=== PATIENT | male | born 1955 | race Caucasian/White ===

== ENCOUNTER 2017-11-29 09:08 | Observation (INO) ==
[2017-11-29] MEDS ORDERED: 0.9 % Sodium Chloride 1,000 ML IVC ONE (09:21)
--- NOTE | 2017-11-29 09:33 | Emergency Department Note ---
Disposition Clinical Impression: Syncope and collapse Disposition: Admitted As Inpatient Condition: Good Referrals: NONE,PCP [Primary Care Provider] - Forms: ED Satisfaction Letter General Adult HPI - General Chief complaint: ED Syncope Stated complaint: syncope Time Seen by Provider: 11/29/17 09:14 Source: EMS Limitations: no limitations Nursing Notes Reviewed: Yes Vital Signs Reviewed: Yes - History of Present Illness Pain Scale: 0 - Related Data Allergies Allergy/AdvReac Type Severity Reaction Status Date / Time No Known Allergies Allergy Verified 11/29/17 09:26 Past Medical History - Past Medical History Medical history: Reports: diabetes, GERD, hypertension Surgical history: Reports: other Psychiatric history: Reports: no psych history - Social History Smoking Status: Never smoker Smokeless Tobacco Status: No Alcohol use: Reports: none Drug use: Reports: none Physical Exam - General Limitations: no limitations General appearance: alert, in no apparent distress Course Vital Signs Temperature 97.6 F 11/29/17 09:11 Pulse Rate 70 11/29/17 09:11 Respiratory Rate 14 11/29/17 09:11 Blood Pressure 116/66 11/29/17 09:11 O2 Sat by Pulse Oximetry 97 11/29/17 09:11 Temperature 97.6 F 11/29/17 09:11 Pulse Rate 72 11/29/17 10:33 Respiratory Rate 14 11/29/17 09:11 Blood Pressure 120/66 11/29/17 10:33 O2 Sat by Pulse Oximetry 97 11/29/17 09:11 Oxygen Delivery Oxygen Delivery Room Air Medical Decision Making - MDM Narrative Medical decision making narrative: Chest X-Ray 11/29/17 09:21 IMPRESSION: No acute findings in the chest. D/ / Chevy Felix MD / Chevy Felix MD Interpreting Provider: Chevy Felix MD 1030 hrs.: Chest x-rays negative. Nurse did orthostatics. Lying down was 120/ 66 with a heart rate of 72, sitting up was 112/72 with heart rate of 76, standing was 89/59 with heart rate of 85 which is positive however he was asymptomatic. He is accepted for admission. - Lab Data Result diagrams: 11/29/17 09:40 09/19/18 09:40 Lab Results 11/29/17 11/29/17 Range/Units 09:40 09:40 WBC 10.7 (4.3-11.1) K/mcL RBC 4.81 (4.19-5.50) M/mcL Hgb 14.7 (12.9-16.9) g/dL Hct 41.9 (37.5-50.1) % MCV 87.1 (83.0-100.0) fL MCH 30.6 (28.0-33.3) pg MCHC 35.1 (31.6-35.5) g/dL RDW 12.0 (11.5-14.5) % Plt Count 209 (140-400) K/mcL MPV 12.0 (9.4-12.4) fL Immature Gran % 0.3 (0-4) % Seg Neutrophils % 65.2 % Lymphocytes % 21.7 % Monocytes % 8.4 % Eosinophils % 3.8 % Basophils % 0.6 % Neutrophils # 7.0 (1.6-8.9) K/mcL Lymphocytes # 2.3 (0.6-4.6) K/mcL Monocytes # 0.9 (0.0-1.3) K/mcL Eosinophils # 0.4 (0.0-0.6) K/mcL Basophils # 0.1 (0.0-0.2) K/mcL Sodium 134 L (136-145) mEq/L Potassium 4.1 (3.5-5.1) mEq/L Chloride 100 (98-107) mEq/L Carbon Dioxide 25 (23-29) mEq/L BUN 17 (8-23) mg/dL Creatinine 1.08 (0.70-1.30) mg/dL Est GFR ( Amer) > 60 (> 60) Est GFR (Non-Af Amer) > 60 (> 60) BUN/Creatinine Ratio 16 (6-26) Glucose 376 H (70-105) mg/dL Calculated Osmolality 295 (280-300) Calcium 8.9 (8.6-10.3) mg/dL Total Bilirubin 0.5 (0.3-1.0) mg/dL AST 10 L (13-39) Units/L ALT 8 (7-52) Units/L Alkaline Phosphatase 45 (34-104) Units/L Troponin I < 0.03 (< 0.04) ng/mL Serum Total Protein 6.5 (6.4-8.9) g/dL Albumin 3.5 (3.5-5.7) g/dL Globulin 3.0 (2.4-3.5) g/dL Albumin/Globulin Ratio 1.2 (1.1-2.2) Attestation Statement - Attestation Attestation: This documentation is done with the assistance of Dragon dictation. Despite efforts made to ensure accuracy, there may be inaccuracies in hand glass cutter or spelling and typographical errors. I examined this patient and my medical decision-making was reviewed with the Resident Physician. I agree with the documented findings, disposition and treatment plan as described except to the extent set forth below. Patient seen and evaluated on arrival with EMS and : Denny, I agree with his evaluation and management plan, supervise care the patient's stay. 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 He said he got was normal time felt okay. A little little lightheaded. And then woke up on the floor. It was a witnessed syncopal episode. He denies any injury. He states now he feels fine. Medics did note he had hypotension with a systolic blood pressure in the 90s. He also had some ST segment depression on their initial EKG however the second EKG did not demonstrate this. Patient states he did take his blood pressure medication this morning and his blood sugar medication. His blood sugar was not low per medics. He said the same thing happened him back on but he did not get evaluated at that time. We will order a workup now and reassess. Most likely he will need admission. He has no neuro deficits on gross exam per
[2017-11-29 09:48] LABS: Basophils # 0.1 K/mcL (0.0-0.2); Basophils % 0.6 %; Eosinophils # 0.4 K/mcL (0.0-0.6); Eosinophils % 3.8 %; Hematocrit 41.9 % (37.5-50.1); Hemoglobin 14.7 g/dL (12.9-16.9); Immature Granulocytes % 0.3 % (0-4); Lymphocytes # 2.3 K/mcL (0.6-4.6); Lymphocytes % 21.7 %; Mean Corpuscular HGB Conc 35.1 g/dL (31.6-35.5); Mean Corpuscular Hemoglobin 30.6 pg (28.0-33.3); Mean Corpuscular Volume 87.1 fL (83.0-100.0); Monocytes # 0.9 K/mcL (0.0-1.3); Monocytes % 8.4 %; Platelet Count 209 K/mcL (140-400); Red Blood Count 4.81 M/mcL (4.19-5.50); Segmented Neutrophils % 65.2 %
--- NOTE | 2017-11-29 09:49 | Emergency Department Note ---
Disposition Clinical Impression: Syncope and collapse Disposition: Admitted As Inpatient Condition: Good Referrals: NONE,PCP [Primary Care Provider] - Forms: ED Satisfaction Letter Time of Disposition: 10:33 General Adult HPI - General Chief complaint: ED Syncope Stated complaint: syncope Time Seen by Provider: 11/29/17 09:14 Source: patient, EMS Mode of arrival: EMS Limitations: no limitations Nursing Notes Reviewed: Yes Vital Signs Reviewed: Yes - History of Present Illness HPI Narrative: Patient is a 62-year-old male that presents emergency department after syncopal episode. 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 Patient states that he did fall to ground but did not injure himself. Patient denies hitting his head. States that he was only out for a short period of time. Patient states that he has had these episodes in the past most recent one was on weekend. Patient states that he has not had a workup for his syncope. Patient denies any numbness, weakness, tingling or any other symptoms at this time. Pain Scale: 0 - Related Data Allergies Allergy/AdvReac Type Severity Reaction Status Date / Time No Known Allergies Allergy Verified 11/29/17 09:26 All systems ED: reviewed and negative except as stated. Cardiovascular: Denies: chest pain Respiratory: Denies: dyspnea Gastrointestinal: Denies: abdominal pain Neurological: Denies: weakness, numbness, paresthesias Past Medical History - Past Medical History Medical history: Reports: diabetes, GERD, hypertension Surgical history: Reports: other Psychiatric history: Reports: no psych history - Social History Smoking Status: Never smoker Smokeless Tobacco Status: No Alcohol use: Reports: none Drug use: Reports: none Physical Exam - General Limitations: no limitations General appearance: alert, in no apparent distress - Head Head exam: atraumatic, normocephalic - Eye Eye exam: Present: normal appearance, EOMI - Neck Neck exam: Present: normal inspection, full ROM, trachea midline - Respiratory Respiratory exam: Present: normal lung sounds bilaterally. Absent: respiratory distress, wheezes - Cardiovascular Cardiovascular exam: Present: regular rate, normal rhythm, normal heart sounds, +S1, +S2 - Abdominal Exam Abdominal exam: Present: soft, Non-Tender, normal bowel sounds - Neurological Exam Neurological exam: Present: alert, oriented X3, CN II-XII intact - Expanded Neurological Exam Cranial nerves: EOM function (II, III, IV, ): Normal, facial sensation (V): Normal, facial palsy (VII): Normal, gag reflex (IX): Normal, spinal accessory function (XI): Normal, tongue deviation (XII): Normal Cerebellar function: finger to nose: Normal, heel to prakash: Normal Motor strength - LUE: 5/5 Motor strength - RUE: 5/5 Motor strength - LLE: 5/5 Motor strength - RLE: 5/5 Upper motor neuron exam: pronator drift: Absent bilaterally Sensory exam upper extremity: light touch: Normal Sensory exam lower extremity: light touch: Normal Coma Scale Eye Opening: Spontaneous Coma Scale Motor Response: Obeys Commands Coma Scale Verbal Response: Oriented Coma Scale Total: 15 - Psychiatric Psychiatric exam: Present: normal affect, normal mood - Skin Skin exam: Present: warm, dry, intact Course Vital Signs Temperature 97.6 F 11/29/17 09:11 Pulse Rate 70 11/29/17 09:11 Respiratory Rate 14 11/29/17 09:11 Blood Pressure 116/66 11/29/17 09:11 O2 Sat by Pulse Oximetry 97 11/29/17 09:11 Temperature 97.6 F 11/29/17 09:11 Pulse Rate 70 11/29/17 09:11 Respiratory Rate 14 11/29/17 09:11 Blood Pressure 116/66 11/29/17 09:11 O2 Sat by Pulse Oximetry 97 11/29/17 09:11 Oxygen Delivery Oxygen Delivery Room Air Medical Decision Making - MDM Narrative Medical decision making narrative: Due to the patient presenting to the emergency department with a syncopal episode we will obtain basic laboratory tests including CBC, BMP, troponin chest x-ray and EKG. Patient will likely need to be admitted to the hospital due to unexplained syncopal episodes that of been reoccurring. Patient's EKG does not show any ischemic changes Rest x-ray does not show any acute cardial pulmonary process. The patient does have an elevated blood glucose level. The remainder of his laboratory testing is relatively unremarkable. The patient will need to be admitted to the hospital for further evaluation and management of these syncopal episodes. I called and spoke with the admitting hospitalist Dr. Henry and he is accepted the patient to their service. Patient will be admitted to the hospital at this time for further evaluation and management. - Medical Records Medical records reviewed: Yes I reviewed the patient's medical records. - Lab Data Lab results reviewed: Yes I reviewed the patient's lab results. Result diagrams: 11/29/17 09:40 11/29/17 09:40 Lab Results 11/29/17 11/29/17 Range/Units 09:40 09:40 WBC 10.7 (4.3-11.1) K/mcL RBC 4.81 (4.19-5.50) M/mcL Hgb 14.7 (12.9-16.9) g/dL Hct 41.9 (37.5-50.1) % MCV 87.1 (83.0-100.0) fL MCH 30.6 (28.0-33.3) pg MCHC 35.1 (31.6-35.5) g/dL RDW 12.0 (11.5-14.5) % Plt Count 209 (140-400) K/mcL MPV 12.0 (9.4-12.4) fL Immature Gran % 0.3 (0-4) % Seg Neutrophils % 65.2 % Lymphocytes % 21.7 % Monocytes % 8.4 % Eosinophils % 3.8 % Basophils % 0.6 % Neutrophils # 7.0 (1.6-8.9) K/mcL Lymphocytes # 2.3 (0.6-4.6) K/mcL Monocytes # 0.9 (0.0-1.3) K/mcL Eosinophils # 0.4 (0.0-0.6) K/mcL Basophils # 0.1 (0.0-0.2) K/mcL Sodium 134 L (136-145) mEq/L Potassium 4.1 (3.5-5.1) mEq/L Chloride 100 (98-107) mEq/L Carbon Dioxide 25 (23-29) mEq/L BUN 17 (8-23) mg/dL Creatinine 1.08 (0.70-1.30) mg/dL Est GFR ( Amer) > 60 (> 60) Est GFR (Non-Af Amer) > 60 (> 60) BUN/Creatinine Ratio 16 (6-26) Glucose 376 H (70-105) mg/dL Calculated Osmolality 295 (280-300) Calcium 8.9 (8.6-10.3) mg/dL Total Bilirubin 0.5 (0.3-1.0) mg/dL AST 10 L (13-39) Units/L ALT 8 (7-52) Units/L Alkaline Phosphatase 45 (34-104) Units/L Troponin I < 0.03 (< 0.04) ng/mL Serum Total Protein 6.5 (6.4-8.9) g/dL Albumin 3.5 (3.5-5.7) g/dL Globulin 3.0 (2.4-3.5) g/dL Albumin/Globulin Ratio 1.2 (1.1-2.2) - Radiology Data Radiology results reviewed: Yes I reviewed the patient's radiology results. Chest X-Ray 11/29/17 09:21 IMPRESSION: No acute findings in the chest. D/ / Chevy Felix MD / Chevy Felix MD Interpreting Provider: Chevy Felix MD - EKG Data EKG #1 EKG attestation: Yes I reviewed and interpreted this EKG. EKG results narrative: EKG shows sinus rhythm at a rate of 72 bpm, GA interval of 221, QRS duration of 108, QTc of 438. There are some T-wave inversions in lead 1 and aVL. This is compared to previous EKG on 07/27/13 which also showed these inversions. No evidence of STEMI on EKG.
--- NOTE | 2017-11-29 09:53 | Emergency Department Note ---
Disposition Clinical Impression: Syncope and collapse Disposition: Admitted As Inpatient Condition: Good General Adult HPI - General Chief complaint: ED Syncope Stated complaint: syncope Time Seen by Provider: 11/29/17 09:14 Source: EMS Limitations: no limitations Nursing Notes Reviewed: Yes Vital Signs Reviewed: Yes - History of Present Illness HPI Narrative: 62 year old male with diabetes on Metformin and HTN BIBA for evaluation of a witnessed syncopal episode. Patient works in a [employer] and states that he was standing behind the robertson chair when he started to feel clammy and lightheaded and passed out. Patient states that he awoke on the floor and thinks that he fell on his hip but denies pain at this time. Pt states he does not believe he hit his head. Pt denies loss of bowel or bladder control. Patient has a history of syncopal episodes with the most recent one occurring while walking in a flea market on November 11 earlier this year. He has not been evaluated by a health care provider for these occurrences. Pt denies chest pain, shortness of breath, LAURA, abdominal pain, N/V, numbness or weakness at this time. Pain Scale: 0 - Related Data Allergies Allergy/AdvReac Type Severity Reaction Status Date / Time No Known Allergies Allergy Verified 11/29/17 09:26 Constitutional: Denies: fever, chills Eyes: Denies: vision change Cardiovascular: Reports: syncope. Denies: chest pain, palpitations Respiratory: Denies: cough, dyspnea Gastrointestinal: Denies: abdominal pain, nausea, vomiting Genitourinary: Denies: urgency, dysuria Musculoskeletal: Denies: neck pain Integumentary: Denies: abrasion Neurological: Denies: headache, numbness Psychiatric: Reports: as per HPI Endocrine: Denies: fatigue Allergic/Immunologic: Reports: as per HPI Past Medical History - Past Medical History Medical history: Reports: diabetes, GERD, hypertension Surgical history: Reports: other Psychiatric history: Reports: no psych history - Social History Smoking Status: Never smoker Smokeless Tobacco Status: No Alcohol use: Reports: none Drug use: Reports: none Physical Exam - General Limitations: no limitations General appearance: alert, in no apparent distress - Head Head exam: normocephalic, normal inspection - Eye Eye exam: Present: normal appearance, PERRL - ENT ENT exam: normal exam, normal oropharynx - Neck Neck exam: Present: full ROM. Absent: tenderness - Chest Chest inspection: Present: symmetric chest wall rise - Respiratory Respiratory exam: Present: normal lung sounds bilaterally - Cardiovascular Cardiovascular exam: Present: regular rate, normal rhythm. Absent: JVD - Abdominal Exam Abdominal exam: Present: soft, Non-Tender, normal bowel sounds. Absent: guarding, rigidity - Extremities Exam Extremities exam: Present: normal inspection, full ROM. Absent: tenderness - Back Exam Back exam: Present: normal inspection - Neurological Exam Neurological exam: Present: alert, oriented X3, CN II-XII intact - Psychiatric Psychiatric exam: Present: normal affect, normal mood - Skin Skin exam: Present: warm, normal color Course Vital Signs Temperature 97.6 F 11/29/17 09:11 Pulse Rate 70 11/29/17 09:11 Respiratory Rate 14 11/29/17 09:11 Blood Pressure 116/66 11/29/17 09:11 O2 Sat by Pulse Oximetry 97 11/29/17 09:11 Temperature 97.6 F 11/29/17 09:11 Pulse Rate 72 11/29/17 10:33 Respiratory Rate 14 11/29/17 09:11 Blood Pressure 120/66 11/29/17 10:33 O2 Sat by Pulse Oximetry 97 11/29/17 09:11 Oxygen Delivery Oxygen Delivery Room Air Medical Decision Making - Lab Data Result diagrams: 11/29/17 09:40 11/29/17 09:40 Lab Results 11/29/17 11/29/17 Range/Units 09:40 09:40 WBC 10.7 (4.3-11.1) K/mcL RBC 4.81 (4.19-5.50) M/mcL Hgb 14.7 (12.9-16.9) g/dL Hct 41.9 (37.5-50.1) % MCV 87.1 (83.0-100.0) fL MCH 30.6 (28.0-33.3) pg MCHC 35.1 (31.6-35.5) g/dL RDW 12.0 (11.5-14.5) % Plt Count 209 (140-400) K/mcL MPV 12.0 (9.4-12.4) fL Immature Gran % 0.3 (0-4) % Seg Neutrophils % 65.2 % Lymphocytes % 21.7 % Monocytes % 8.4 % Eosinophils % 3.8 % Basophils % 0.6 % Neutrophils # 7.0 (1.6-8.9) K/mcL Lymphocytes # 2.3 (0.6-4.6) K/mcL Monocytes # 0.9 (0.0-1.3) K/mcL Eosinophils # 0.4 (0.0-0.6) K/mcL Basophils # 0.1 (0.0-0.2) K/mcL Sodium 134 L (136-145) mEq/L Potassium 4.1 (3.5-5.1) mEq/L Chloride 100 (98-107) mEq/L Carbon Dioxide 25 (23-29) mEq/L BUN 17 (8-23) mg/dL Creatinine 1.08 (0.70-1.30) mg/dL Est GFR ( Amer) > 60 (> 60) Est GFR (Non-Af Amer) > 60 (> 60) BUN/Creatinine Ratio 16 (6-26) Glucose 376 H (70-105) mg/dL Calculated Osmolality 295 (280-300) Calcium 8.9 (8.6-10.3) mg/dL Total Bilirubin 0.5 (0.3-1.0) mg/dL AST 10 L (13-39) Units/L ALT 8 (7-52) Units/L Alkaline Phosphatase 45 (34-104) Units/L Troponin I < 0.03 (< 0.04) ng/mL Serum Total Protein 6.5 (6.4-8.9) g/dL Albumin 3.5 (3.5-5.7) g/dL Globulin 3.0 (2.4-3.5) g/dL Albumin/Globulin Ratio 1.2 (1.1-2.2)
[2017-11-29 10:08] LABS: Alanine Aminotransferase 8 Units/L (7-52); Albumin 3.5 g/dL (3.5-5.7); Albumin/Globulin Ratio 1.2 (1.1-2.2); Alkaline Phosphatase 45 Units/L (34-104); Aspartate Amino Transferase 10 Units/L (13-39); BUN/Creatinine Ratio 16 (6-26); Bilirubin,Total 0.5 mg/dL (0.3-1.0); Blood Urea Nitrogen 17 mg/dL (8-23); Calcium 8.9 mg/dL (8.6-10.3); Carbon Dioxide 25 mEq/L (23-29); Chloride 100 mEq/L (98-107); Glucose 376 mg/dL (70-105); Osmolality,Calculated 295 (280-300); Potassium 4.1 mEq/L (3.5-5.1); Sodium 134 mEq/L (136-145); Total Protein 6.5 g/dL (6.4-8.9); Troponin I < 0.03 ng/mL (< 0.04); eGFR For Non-African Americans > 60 (> 60)
[2017-11-29] MEDS ORDERED: Naloxone 0.4 MG/ML INJ IVP PRN (12:24)
--- NOTE | 2017-11-29 12:50 | Internal Med History&Physical ---
Date of Encounter: 11/29/17 Time of Encounter: 12:47 Internal Medicine - H&P: HPI Chief complaint: I fell History of present illness: Mr. Paredes is a 62 year old male with past medical history of hypertension diabetes for about past year came in with complain of fall. Patient had a fitness S syncopal episode. 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 He fell on his hip. No reports of convulsive episodes. Denies any history of any seizure episodes. Denies any loss of bowel or bladder control. Patient on interview said he had similar episodes about 9 months ago during Labor Day. However to ER jorge albertoter he also mentioned he had similar episode on November 11. Denies any chest pain any shortness of breath, tingling numbness or weakness in any part of her body. Denies any vision changes, hearing changes or speech changes. Denies any headaches. Denies any nausea or vomiting. He had cinnamon roll in breakfast before he went for work. Denies any cardiac history. Unclear to him why he is taking aspirin and Coreg. Does not remember having any echocardiogram in the past and denies any history of any heart problems in past. Patient received a liter of NS in ER. Patient was noted to have elevated blood sugar levels in 300. He is blood sugar Ann in the morning has been in 200s or the past few days. He does mention having increased urinary frequency over the past year. He has been eating and drinking okay according to him over the past few days. Past Med Surg Social Fam HX - Past Medical History Medical history: diabetes, GERD, hypertension Psychiatric history: no psych history - Past Surgical History Surgical History: no surgical history, other - Social History Smoking Status: Never smoker Smokeless Tobacco Status: No Alcohol use: none Drug use: none Occupational status: employed Current living situation: Home - Independent Activity Level: Independent ambulation - Family History Sister Hx Family Cancer: Yes (Unknown cancer) Internal Medicine - H&P: Meds Amlodipine Besylate 10 mg PO DAILY 11/29/17 [History] Aspirin [Lo-Dose Aspirin EC] 81 mg PO DAILY 11/29/17 [History] Carvedilol [Coreg] 25 mg PO BID 11/29/17 [History] Lisinopril [Zestril] 20 mg PO DAILY 11/29/17 [History] Lovastatin [Mevacor] 60 mg PO HS 11/29/17 [History] Metformin HCl 1,000 mg PO BID 11/29/17 [History] hydroCHLOROthiazide [Hydrochlorothiazide] 25 mg PO DAILY 11/29/17 [History] 3 Allergy/AdvReac Type Severity Reaction Status Date / Time No Known Allergies Allergy Verified 11/29/17 09:26 All Systems PM: A 10-system review of systems was performed and is negative for pertinent findings except as documented above in the HPI. - Constitutional Vitals: Temp Pulse Resp BP Pulse Ox 97.6 F 72 14 120/66 97 11/29/17 09:11 11/29/17 10:33 11/29/17 09:11 11/29/17 10:33 11/29/17 09:11 General appearance: Present: A&O X 3, no acute distress Exam: Const: Vital signs listed above.Orthostatic vitals: 146/77-94 lying down, 111/76 -80 standing after 3 mins. Well developed, well nourished and in no acute distress. No mood disorders noted, calm affect. Eyes: Sclera white, conjunctiva clear, lids are without lag. PERRLA. Pupils and irises are equal and round without defect. ENT: Grossly normal hearing. Oropharanx clear and moist without erythema. Gums pink, good dentition. Lymph/Neck: No masses, thyromegaly, or abnormal cervical notes. No bruit. Tracheal midline. Cardio: RRR, Normal S1, S2, ejection systolic murmur best heard at LLSB, no rubs or gallops. Skin warm and dry. No peripheral edema. Respiratory: Chest symmetrical, respirations non-labored. No dullness or flatness. Clear bilaterally to auscultation, non-tender to palpitation. Musculo: No deformity or scoliosis noted. No bhupendra gait disturbance noted. No cyanosis or edema. Pulses normal in all 4 extremities. No atrophy or abnormal movements. Appropriate muscle strength bilaterally. Neurologic: No focal deficits, cranial nerves II-XII grossly intact with normal sensation, reflexes, coordination, muscle strength and tone. GI/Abdomen: Soft, non tender, non distended, no hepatosplemomegaly, normal bowel sounds, no masses noted. Pych: AOx3 Internal Med - H&P Results - Labs CBC & Chem 7: 11/29/17 09:40 11/29/17 09:40 - Assessment and plan (1) Syncope and collapse Current Visit: Yes Status: Acute Assessment and plan: Syncopal episode with some prodrome of feeling clammy and some sweating - Differential include orthostatic hypotension, cardiac arrhythmia, structural heart problems. Unlikely to be seizure episode by history. - Likely orthostatic given elevated blood sugars might have led to dehydration with the orthostatic vitals being positive for drop in systolic and diastolic blood pressure - However given abnormal EKG and presence of systolic murmur we will obtain echocardiogram. - We will get cardiology consultation given abnormal EKG with ST depression and T-wave inversion in the 1 and aVL(although was seen in previous EKGs). Patient currently symptom-free. - Keep patient on telemetry. - Received 1 L of NS in ER. We will continue gentle hydration with 75 mL of normal saline given his elevated her blood sugar (2) Abnormal EKG Current Visit: Yes Status: Acute Assessment and plan: EKG with the T-wave inversions and ST depression in lead [address] elevation in V2 and V1 without any chest pain or shortness of breath - Similar changes observed in previous EKGs. - Cardiology consulted. (3) HTN (hypertension) Current Visit: Yes Status: Acute Assessment and plan: Blood pressure currently well controlled. - We will continue home Coreg and lisinopril. - We will hold home hydrochlorothiazide given mild hyponatremia and syncope. - We will consider another antihypertensive if needed given his symptoms could be from dehydration and possibility of recurrence. Qualifiers: Qualified Code(s): I10 - Essential (primary) hypertension (4) Diabetes mellitus Current Visit: Yes Status: Acute Assessment and plan: Elevated blood sugars in 300s - Patient takes metformin at home. - Hold metformin for now. - Keep patient on sliding scale insulin, pre-meal insulin of 5 and Levemir of 10 at bedtime. We will do 1 dose of 5 units of Levemir now. Accu-Cheks before meals at bedtime. - We will keep patient on gentle hydration with normal saline at 75 mL/hr Qualifiers: Qualified Code(s): E11.9 - Type 2 diabetes mellitus without complications - Time Spent With Patient Total time spent is greater than 50% in coordination of care (as documented) at patient's floor/unit and/or counseling patient:
[2017-11-29] MEDS ORDERED: Insulin DETEMIR 100 UNIT/ML X5UNITS SQ ONE (13:22)
--- NOTE | 2017-11-29 13:29 | Electrocardiograph Report ---
[facility] Test Date: 2017-11-29 Pat Name: Frederick Paredes Department: EXAM6 Room: 2S3 Gender: M Human Resources Leader: : 1955 Requested By: Ammon Mcmahan Order Number: [id number] Reading MD: Luis Glass Measurements Intervals [place] Rate: 72 P: -20 MO: 221 QRS: -41 QRSD: 108 T: 114 QT: 418 QTc: 458 Interpretive Statements Sinus rhythm Abnormal R-wave progression, late transition LVH with secondary repolarization abnormality Electronically Signed On 11-29-2017 13:28:09 EDT by Luis Glass
[2017-11-29] MEDS: 0.9 % Sodium Chloride 1,000 ML IVC SCH (13:59)
[2017-11-29] MEDS: Insulin LISPRO 300 UNITS/3 ML VIAL SQ SCH (16:21)
[2017-11-29] MEDS ORDERED: Insulin DETEMIR 100 UNIT/ML X5UNITS SQ SCH (21:00)
[2017-11-29] MEDS ORDERED: Perflutren Lipid Microsphere 1.3 ML in 0.9 % Sodium Chloride 8.7 ML IVP ONE (21:22)
[2017-11-30] MEDS: *HR* Enoxaparin 40 MG/0.4 ML SYRINGE SQ SCH (06:26)
[2017-11-30] MEDS ORDERED: Lisinopril 20 MG TABLET PO SCH (09:00)
[2017-11-30] MEDS ORDERED: amLODIPine 5 MG TABLET PO SCH (09:00)
--- NOTE | 2017-11-30 10:05 | Internal Med Progress Note ---
Hospitalist Progress Note - Encounter Date of Encounter: 11/30/17 Time of Encounter: 10:00 - Subjective Interval History: NO acute changes overnight. Denies any return of syncopal like events. Reports that he feels fine and is wanting to discharge. - Exam Vitals: Temp Pulse Resp BP Pulse Ox 97.8 F 69 16 147/83 95 11/30/17 08:27 11/30/17 08:27 11/30/17 08:27 11/30/17 08:27 11/30/17 08:27 Exam: Const: Vital signs listed above.Orthostatic vitals: 146/77-94 lying down, 111/76 -80 standing after 3 mins. Well developed, well nourished and in no acute distress. No mood disorders noted, calm affect. Eyes: Sclera white, conjunctiva clear, lids are without lag. PERRLA. Pupils and irises are equal and round without defect. ENT: Grossly normal hearing. Oropharanx clear and moist without erythema. Gums pink, good dentition. Lymph/Neck: No masses, thyromegaly, or abnormal cervical notes. No carotid bruits. Tracheal midline. Cardio: RRR, Normal S1, S2, grade 1 ejection systolic murmur best heard at LLSB , no rubs or gallops. Skin warm and dry. No peripheral edema. Respiratory: Chest symmetrical, respirations non-labored. No dullness or flatness. Clear bilaterally to auscultation, non-tender to palpitation. Musculo: No deformity or scoliosis noted. No bhupendra gait disturbance noted. No cyanosis or edema. Pulses normal in all 4 extremities. No atrophy or abnormal movements. Appropriate muscle strength bilaterally. Neurologic: No focal deficits, cranial nerves II-XII grossly intact with normal sensation, reflexes, coordination, muscle strength and tone. GI/Abdomen: Soft, non tender, non distended, no hepatosplemomegaly, normal bowel sounds, no masses noted. Pych: AOx3 - Assessment and Plan (1) Syncope and collapse Current Visit: Yes Status: Acute Assessment and Plan: Syncopal episode with some prodrome of feeling clammy and some sweating - Differential include orthostatic hypotension, cardiac arrhythmia, structural heart problems. Unlikely to be seizure episode by history. - Likely orthostatic given elevated blood sugars might have led to dehydration with the orthostatic vitals being positive for drop in systolic and diastolic blood pressure - However given abnormal EKG and presence of systolic murmur we will obtain echocardiogram. - We will get cardiology consultation given abnormal EKG with ST depression and T-wave inversion in the 1 and aVL(although was seen in previous EKGs). Patient currently symptom-free. - Keep patient on telemetry. - Received 1 L of NS in ER. We will continue gentle hydration with 75 mL of normal saline given his elevated her blood sugar 11/30- Positive orthostasis; Diagnosis orthostatic hypotension. Consider medications as cause. Patient reporting 5-6 syncopal events during the last year while at home. He denies ever having an evaluation for these events but reports that they began to occur shortly after starting lisinopril and CCB. Could also be caused by dehydration. Continue IVF, decrease JACQUI I dose and CCB dosing and monitor hemodynamic status. Continue with BID orthostasis. TTE- LVEF 70%. Normal LV chamber size and systolic function. Moderate cLVH. Normal right ventricular structure and function. No significant valvular dysfunction. Mild LVOT flow acceleration with minimal gradient. Unable to estimate RVSP due to lack of TR jet. Cardiology following in consultation and in agreement with d/c of HCTZ, decreasing JACQUI I and CCB, continue to closely monitor. May need further titration of anti-HTN meds to avoid HTN (2) HTN (hypertension) Current Visit: Yes Status: Acute Assessment and Plan: Blood pressure currently well controlled. episodes of orthostatic hypotension; will need to adjust BP meds - We will continue home Coreg at home dose and lisinopril at decreased dose, decrease CCB. - Continue holding hydrochlorothiazide given mild hyponatremia and syncope. (3) Diabetes mellitus Current Visit: Yes Status: Acute Assessment and Plan: Elevated blood sugars in 300s - Patient takes metformin at home. - Hold metformin for now. - Keep patient on sliding scale insulin, pre-meal insulin of 5 , increase levamir to 15 units at bedtime. We will do 1 dose of 5 units of Levemir now. Accu-Cheks before meals at bedtime. - We will keep patient on gentle hydration with normal saline at 75 mL/hr (4) Abnormal EKG Current Visit: Yes Status: Acute Assessment and Plan: EKG with the T-wave inversions and ST depression in lead [address] elevation in V2 and V1 without any chest pain or shortness of breath - Similar changes observed in previous EKGs 2015 - Initial troponin negative - Cardiology consulted - Echo pending - Time Spent with Patient Total time spent is greater than 50% in coordination of care (as documented) at patient's floor/unit and/or counseling patient: less than 15 minutes Plan of Care Discussed with: patient Internal Medicine: Result - Labs CBC & Chem 7: 11/29/17 09:40 11/29/17 09:40 - Impressions Impressions Echocardiogram 11/29/17 12:47 Impressions: LVEF 70%. Normal LV chamber size and systolic function. Moderate concentric left ventricular hypertrophy. Normal right ventricular structure and function. No significant valvular dysfunction. Mild LVOT flow acceleration with minimal gradient. Unable to estimate RVSP due to lack of TR jet. Left Ventricular Wall Motion: Rest Echo Findings All wall segments showed normal motion. Findings: Study Quality * Technically adequate exam. ECG Findings * Normal sinus rhythm. Left Ventricle * LVEF 70%. * Normal LV chamber size and systolic function. * Indeterminate diastolic function. * Moderate concentric left ventricular hypertrophy. Right Ventricle * Normal right ventricular structure and function. Left Atrium * Normal left atrial size. Right Atrium * Normal right atrial size. Interatrial Septum * Interatrial septum not well evaluated. Aortic Valve * Trileaflet aortic valve. * Mildly calcified aortic valve leaflets. * Mild LVOT flow acceleration, PG/MG 8/4mmHg * No aortic regurgitation. * No aortic stenosis. Mitral Valve * Normal mitral valve structure and function. * No mitral regurgitation. Tricuspid Valve * Normal tricuspid valve structure and function. * No tricuspid regurgitation. * Unable to estimate RVSP due to lack of TR jet. Pulmonic Valve * Normal pulmonic valve structure and function. * Trace pulmonic regurgitation. Aorta * Normally sized aortic root. Pericardium * The pericardium appears normal. IVC * The IVC is not well evaluated. Consult Discharge Plan - Plan Referrals: NONE,PCP [Primary Care Provider] -
--- NOTE | 2017-11-30 10:33 | Cardiology Consult Note ---
<Kole Ashby R - Last Filed: 11/30/17 12:22> Date of Encounter: 11/30/17 Time of Encounter: 10:27 Assessment and Plan (1) Syncope and collapse Current Visit: Yes Status: Acute Presented for syncopal event yesterday that occurred after going from a sitting to standing position. Associated symptom of diaphoresis. Reports total of 5 syncopal events in the past 2 years. Orthostatic vitals positive on admission and again this AM--lying 147/83, sitting 135/86, standing 109/80. Home antihypertensives included Lisinopril 20mg daily, Norvasc 10mg daily, HCTZ 25mg daily, Coreg 25mg BID. Primary team d/c'd HCTZ and decreased Lisinopril to 10mg daily and Norvasc to 5mg daily. Agree with changes. Suspect syncope is secondary to orthostatic hypotension. Pt admits to not staying well hydrated. Recommend staying hydrated, change positions slowly. TTE resulted--LVEF 70%. Normal LV chamber size and systolic function. Moderate cLVH. Normal right ventricular structure and function. No significant valvular dysfunction. Mild LVOT flow acceleration with minimal gradient. Unable to estimate RVSP due to lack of TR jet. Anticipate sign off once seen and evaluated by Dr. Palma. (2) Abnormal EKG Current Visit: Yes Status: Acute EKG is similar to previous in 2015. LVH with reciprocal changes. Initial troponin negative. Pt denies chest pain or dyspnea. No hx of CAD. TTE EF preserved. Discussion w patient/family: The assessment and plan as outlined above was discussed with the patient and/or family members who expressed understanding and agreement. All questions were answered. Thank you for involving us in the care of your patient. Please call with any questions. I will discuss all the above with Dr. Palma and make changes as necessary. History of Present Illness Consult date: 11/30/17 Requesting physician: Cassia Henry Consult reason: syncope Chief complaint: syncope History of present illness: Mr. Paredes is a 62 year old male with PMH of HTN, DM that presented to ED for syncopal event. 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 He denies dizziness/lightheadedness, chest pain or dyspnea. He fell on his hip. Denies any cardiac history. He does report a total of 5 syncopal events over the past couple of years. He admits to not staying well hydrated. Orthostatic vitals positive--lying 143/83, sitting 135/86, standing 109/80. Troponins negative. TTE resulted--LVEF 70%. Normal LV chamber size and systolic function. Moderate cLVH. Normal right ventricular structure and function. No significant valvular dysfunction. Mild LVOT flow acceleration with minimal gradient. Unable to estimate RVSP due to lack of TR jet. Past Med Surg Social Fam HX - Past Medical History Medical history: diabetes, GERD, hypertension Psychiatric history: no psych history - Past Surgical History Surgical History: no surgical history, other - Social History Smoking Status: Never smoker Smokeless Tobacco Status: No Alcohol use: none Drug use: none - Family History Sister Hx Family Cancer: Yes (Unknown cancer) Medications and Allergies Amlodipine Besylate 10 mg PO DAILY 11/29/17 [History] Aspirin [Lo-Dose Aspirin EC] 81 mg PO DAILY 11/29/17 [History] Carvedilol [Coreg] 25 mg PO BID 11/29/17 [History] Lisinopril [Zestril] 20 mg PO DAILY 11/29/17 [History] Lovastatin [Mevacor] 60 mg PO HS 11/29/17 [History] Metformin HCl 1,000 mg PO BID 11/29/17 [History] hydroCHLOROthiazide [Hydrochlorothiazide] 25 mg PO DAILY 11/29/17 [History] 3 Allergy/AdvReac Type Severity Reaction Status Date / Time No Known Allergies Allergy Verified 11/29/17 09:26 All Systems Review: The remainder of the systems were reviewed and are negative - Cardiovascular Cardiovascular: as per HPI, diaphoresis, syncope - Neurological Neurological: syncope Physical Examination Vital Signs, Last 4 Hours Temp Pulse Pulse Pulse Pulse Resp BP 11/30/17 08:27 97.8 F 75 69 77 93 16 147/83 BP BP BP Pulse Ox 18 08:27 147/83 135/86 109/80 95 Vital Signs Temp Pulse Pulse Pulse Pulse Resp BP 11/30/17 08:27 97.8 F 75 69 77 93 16 147/83 11/30/17 04:55 98.1 F 73 15 158/85 11/29/17 23:55 98.2 F 71 15 167/91 11/29/17 21:32 67 15 174/95 11/29/17 16:15 98.1 F 73 16 132/75 11/29/17 13:43 97.4 F L 71 18 113/79 11/29/17 13:00 81 16 120/76 BP BP BP Pulse Ox 11/30/17 08:27 147/83 135/86 109/80 95 11/30/17 04:55 95 11/29/17 23:55 95 11/29/17 21:32 96 11/29/17 16:15 95 11/29/17 13:43 97 11/29/17 13:00 96 Intake and Output 11/29/17 11/30/17 11/30/17 23:59 07:59 15:59 Intake Total 240 / 240 Output Total 150 / 150 Balance 90 / 90 Intake: Oral 240 / 240 Output: Urine 150 / 150 Other: Meal Dinner Percent of Meal Consumed 100% # Voids 1 1 1 Weight 88.2 kg Blood Glucose* 298 232 General: Conversant, No Apparent Distress HEENT: Atraumatic, Normocephaly, Mucus Membranes Moist Neck: No JVD, Normal carotid pulses Cardiac: Reg Rate and Rhythm, Normal S1 and S2, No Murmur Lungs: Normal Breath Sounds, No Wheeze, Rales, Rhonchi Neuro: Alert and responsive, No focal deficits noted Abdomen: Soft, Non-Tender Skin: No rashes noted on visualized skin Musculoskeletal: No Chest Wall Tenderness Extremities: No Clubbing, No Cyanosis, No Edema, Normal Pulses Results 11/29/17 09:40 11/29/17 09:40 Impressions Echocardiogram 11/29/17 12:47 Impressions: LVEF 70%. Normal LV chamber size and systolic function. Moderate concentric left ventricular hypertrophy. Normal right ventricular structure and function. No significant valvular dysfunction. Mild LVOT flow acceleration with minimal gradient. Unable to estimate RVSP due to lack of TR jet. Left Ventricular Wall Motion: Rest Echo Findings All wall segments showed normal motion. Findings: Study Quality * Technically adequate exam. ECG Findings * Normal sinus rhythm. Left Ventricle * LVEF 70%. * Normal LV chamber size and systolic function. * Indeterminate diastolic function. * Moderate concentric left ventricular hypertrophy. Right Ventricle * Normal right ventricular structure and function. Left Atrium * Normal left atrial size. Right Atrium * Normal right atrial size. Interatrial Septum * Interatrial septum not well evaluated. Aortic Valve * Trileaflet aortic valve. * Mildly calcified aortic valve leaflets. * Mild LVOT flow acceleration, PG/MG 8/4mmHg * No aortic regurgitation. * No aortic stenosis. Mitral Valve * Normal mitral valve structure and function. * No mitral regurgitation. Tricuspid Valve * Normal tricuspid valve structure and function. * No tricuspid regurgitation. * Unable to estimate RVSP due to lack of TR jet. Pulmonic Valve * Normal pulmonic valve structure and function. * Trace pulmonic regurgitation. Aorta * Normally sized aortic root. Pericardium * The pericardium appears normal. IVC * The IVC is not well evaluated. Active Medications Amlodipine Besylate (Norvasc) 5 mg PO DAILY [facility] Stop: 06/01/18 09:01 Aspirin (Aspirin Ec) 81 mg PO DAILY [facility] Stop: 06/01/18 09:01 Atorvastatin Calcium (Lipitor) 20 mg PO HS [facility] Stop: 05/31/18 21:01 Last Admin: 11/29/17 22:15 Dose: 20 mg Carvedilol (Coreg) 25 mg PO BIDWM [facility] PRN Reason: Protocol Stop: 05/31/18 17:01 Last Admin: 11/29/17 16:20 Dose: 25 mg Enoxaparin Sodium (Lovenox) 40 mg SQ 0600 [facility] PRN Reason: Protocol Stop: 06/01/18 06:01 Last Admin: 11/30/17 06:26 Dose: 40 mg Sodium Chloride (0.9 % Sodium Chloride) 1,000 mls @ 75 mls/hr IVC .[id number] [facility] Stop: 05/31/18 13:01 Last Admin: 11/29/17 13:59 Dose: 75 mls/hr Insulin Detemir (Levemir) 15 unit SQ HS [facility] Stop: 06/01/18 21:01 Insulin Human Lispro (Humalog) 5 units SQ TIDWM [facility] Stop: 05/31/18 17:01 Last Admin: 11/29/17 16:21 Dose: 5 units Lisinopril (Zestril) 10 mg PO DAILY [facility] PRN Reason: Protocol Stop: 06/01/18 09:01 Naloxone HCl (Narcan) 0.4 mg IVP Q2MIN PRN PRN Reason: SEE COMMENTS Stop: 05/31/18 12:25 - Imaging and Cardiology Echo: report reviewed - EKG Interpretation EKG results cardiology: personally reviewed (SR, LVH) Consult Discharge Plan - Plan Referrals: NONE,PCP [Primary Care Provider] - <Peter Palma A - Last Filed: 11/30/17 17:37> Date of Encounter: 11/30/17 - Attending Attestation I have personally performed a face to face evaluation on this patient. I have reviewed and agree with the care plan. History and Exam by me shows: 62 y/o M with features of orthostatic hypotension; echo shows hyperdynamic EF with mild YAN but no significant gradient. Avoid dehydration. Discontinue diuretics. Advise to stay hydrated Assessment and Plan Discussion w patient/family: The assessment and plan as outlined above was discussed with the patient and/or family members who expressed understanding and agreement. All questions were answered. Thank you for involving us in the care of your patient. Please call with any questions. History of Present Illness History of present illness: Mr. Paredes is a 62 year old male All Systems Review: The remainder of the systems were reviewed and are negative Physical Examination Vital Signs, Last 4 Hours Temp Pulse Resp BP Pulse Ox 11/30/17 16:16 98.1 F 69 14 152/81 96 Results 11/29/17 09:40 11/29/17 09:40
[2017-11-30] MEDS: Aspirin Enteric Coated 81 MG Tablet PO SCH (10:41)
[2017-11-30] MEDS: amLODIPine 5 MG TABLET PO SCH (10:41)
[2017-11-30] MEDS: Lisinopril 20 MG TABLET PO SCH (10:41)
[2017-11-30] MEDS: Insulin LISPRO 300 UNITS/3 ML VIAL SQ SCH ×3 (10:42→16:39)
[2017-11-30] MEDS: 0.9 % Sodium Chloride 1,000 ML IVC SCH ×2 (16:44→19:33)
[2017-11-30] MEDS ORDERED: Insulin DETEMIR 100 UNIT/ML X5UNITS SQ SCH (21:00)
[2017-12-01] MEDS: *HR* Enoxaparin 40 MG/0.4 ML SYRINGE SQ SCH (05:01)
[2017-12-01] MEDS: 0.9 % Sodium Chloride 1,000 ML IVC SCH (08:19)
[2017-12-01] MEDS: Aspirin Enteric Coated 81 MG Tablet PO SCH (08:20)
[2017-12-01] MEDS: Lisinopril 20 MG TABLET PO SCH (08:20)
[2017-12-01] MEDS: amLODIPine 5 MG TABLET PO SCH (08:21)
[2017-12-01] MEDS: Insulin LISPRO 300 UNITS/3 ML VIAL SQ SCH ×2 (08:21→12:22)
[2017-12-01 11:25] VITALS: BP 151/79
--- NOTE | 2017-12-01 12:54 | Discharge Summary ---
- NOTES TO OUTPATIENT PROVIDER Notes to Outpatient Provider: Presented with syncope collapse secondary to orthostatic hypotension. Workup unremarkable. Antihypertensive medications adjusted. HCTZ has been discontinued. Lisinopril has been decreased to 10 mg daily, Norvasc decreased to 5 mg daily. Cardiology seeing in consultation and agreed with changes to anti-HTN medications. No longer having orthostatic hypotension. Patient is being discharged home. He was able to ambulate around the room and throughout the unit without any dizziness, gait abnormalities or prodrome of syncope. Date of Encounter: 12/01/17 Time of Encounter: 12:52 - Discharge Diagnosis (1) Syncope and collapse Priority: Primary Status: Resolved (2) HTN (hypertension) Priority: Secondary Status: Acute Qualifiers: Qualified Code(s): I10 - Essential (primary) hypertension (3) Diabetes mellitus Priority: Secondary Status: Acute Qualifiers: Qualified Code(s): E11.9 - Type 2 diabetes mellitus without complications (4) Abnormal EKG Priority: Secondary Status: Acute Hospital course: Mr. Paredes is a 62 year old male presented with syncope collapse secondary to orthostatic hypotension. Received IV fluids were continued to have some orthostasis. Likely caused by medications. HCTZ discontinued, lisinopril and Norvasc decreased. Cardiology seeing in consultation and agrees changes and HTN medications. Patient's symptoms improved and is no longer having orthostatic hypotension. Syncope workup unremarkable including carotid Dopplers exhibiting nonstenotic plaque bilaterally, TTE that was grossly normal. Please closely monitor blood pressure and further titrate and HTN medications as appropriate Discharge discussed with: patient, family, nurse, etl consultant - Time Spent with Patient Total time spent providing and/or coordinating discharge services: Less than 30 minutes - Discharge Medications Prescriptions: amLODIPine [Norvasc] 5 mg PO DAILY 30 Days #30 tablet Lisinopril [Zestril] 10 mg PO DAILY 30 Days #15 tablet Home Medications: Aspirin [Lo-Dose Aspirin EC] 81 mg PO DAILY 11/29/17 [History] Carvedilol [Coreg] 25 mg PO BID 11/29/17 [History] Lovastatin [Mevacor] 60 mg PO HS 11/29/17 [History] Metformin HCl 1,000 mg PO BID 11/29/17 [History] Lisinopril [Zestril] 10 mg PO DAILY 30 Days #15 tablet 12/01/17 [Rx] amLODIPine [Norvasc] 5 mg PO DAILY 30 Days #30 tablet 12/01/17 [Rx] Allergies/Adverse Reactions: 3 Allergy/AdvReac Type Severity Reaction Status Date / Time No Known Allergies Allergy Verified 11/29/17 09:26 Date of admission: 11/29/17 11:30 Primary care physician: PCP NONE Consults: 11/29/17 13:24 Consult to Cardiology [CONS] Routine Comment: Consulting Provider: Cardiology Ivelisse Reason for Consult: syncope Call Completed: Yes Discharging clinician: Brendan Agudelo Anticipated date of discharge: 12/01/17 - Constitutional Vitals: Temp Pulse Resp BP Pulse Ox 97.9 F 77 18 151/79 94 12/01/17 11:12 12/01/17 11:19 12/01/17 11:12 12/01/17 11:19 12/01/17 11:12 General appearance: Present: A&O X 3, no acute distress Exam: Constitutional: Patient alert and oriented 3 in no acute distress Eyes: Sclera white, conjunctiva clear, lids are without lag. PERRLA. Pupils and irises are equal and round without defect. ENT: Grossly normal hearing. Oropharanx clear and moist without erythema. Gums pink, good dentition. Lymph/Neck: No masses, thyromegaly, or abnormal cervical notes. No carotid bruits. Tracheal midline. Cardio: RRR, Normal S1, S2, grade 1 ejection systolic murmur best heard at LLSB , no rubs or gallops. Skin warm and dry. No peripheral edema. Respiratory: Chest symmetrical, respirations non-labored. No dullness or flatness. Clear bilaterally to auscultation, non-tender to palpitation. Musculo: No deformity or scoliosis noted. No bhupendra gait disturbance noted. No cyanosis or edema. Pulses normal in all 4 extremities. No atrophy or abnormal movements. Appropriate muscle strength bilaterally. Neurologic: No focal deficits, cranial nerves II-XII grossly intact with normal sensation, reflexes, coordination, muscle strength and tone. GI/Abdomen: Soft, non tender, non distended, no hepatosplemomegaly, normal bowel sounds, no masses noted. Pych: AOx3 - Patient Status Disposition: Home, Self-Care Condition: Good Functional capacity at discharge: independent ambulation Overall status at discharge: patient is progressing back to baseline - Discharge Instructions Instructions: Syncope (DC) Follow Up With: NONE,PCP [Primary Care Provider] - - Diet and Activity Activity: increase activity as tolerated, resume usual activities as tolerated Diet: advance to your usual diet
== END 2017-12-01 13:32 | disposition home or self-care (01) ==
LOC: 2SOUTHHOLD 09:08 → EMEROOARM 09:08 → 2SOUTHHOLD 13:10 → 3BNU 11-30 19:17
PROVIDERS: ADMIT Internal Medicine; ATTEND Internal Medicine

== ENCOUNTER 2021-04-14 18:04 | Inpatient (IN) ==
[2021-04-14] MEDS ORDERED: 0.9 % Sodium Chloride 1,000 ML IVC ONE (18:45)
[2021-04-14 18:56] LABS: Basophils % 0.2 %; Hematocrit 44.3 % (37.5-50.1); Hemoglobin 15.3 g/dL (12.9-16.9); Immature Granulocytes % 0.3 % (0-4); Lymphocytes # 1.3 K/mcL (0.6-4.6); Lymphocytes % 13.5 %; Mean Corpuscular HGB Conc 34.5 g/dL (31.6-35.5); Mean Corpuscular Hemoglobin 30.9 pg (28.0-33.3); Mean Corpuscular Volume 89.5 fL (83.0-100.0); Monocytes # 0.7 K/mcL (0.0-1.3); Neutrophils # 7.6 K/mcL (1.6-8.9); Platelet Count 222 K/mcL (140-400); Red Blood Count 4.95 M/mcL (4.19-5.50); Red Cell Distribution Width 12.8 % (11.5-14.5); White Blood Count 9.7 K/mcL (4.3-11.1)
[2021-04-14 19:19] LABS: Alanine Aminotransferase 7 Units/L (7-52); Albumin 3.6 g/dL (3.5-5.7); Albumin/Globulin Ratio 1.2 (1.1-2.2); Alkaline Phosphatase 92 Units/L (34-104); Aspartate Amino Transferase 10 Units/L (13-39); BUN/Creatinine Ratio 16 (6-26); Bilirubin,Total 0.7 mg/dL (0.3-1.0); Blood Urea Nitrogen 22 mg/dL (8-23); Calcium 9.4 mg/dL (8.6-10.3); Carbon Dioxide 26 mEq/L (23-29); Chloride 93 mEq/L (98-107); Glucose 651 mg/dL (70-105); Osmolality,Calculated 306 (280-300); Potassium 4.1 mEq/L (3.5-5.1); Sodium 131 mEq/L (136-145); Total Protein 6.6 g/dL (6.4-8.9); Troponin I 0.44 ng/mL (< 0.04); eGFR For African Americans > 60 (> 60); eGFR For Non-African Americans 53 (> 60)
[2021-04-14 20:13] LABS: Influenza A PCR Negative (Negative); Influenza B PCR Negative (Negative); Resp. Syncytial Virus PCR Negative (Negative)
[2021-04-14 20:17] LABS: SARS-CoV-2 by PCR (In House) Positive (Negative)
[2021-04-14] MEDS ORDERED: Insulin Human Regular 10 UNIT in 0.9 % Sodium Chloride 10 ML IV ONE (21:02)
[2021-04-14 21:04] LABS: Bilirubin,Urine Negative (Negative); Blood,Urine Small (Negative); Clarity,Urine Clear (Clear); Color,Urine Colorless (Yellow); Glucose,Urine (UA) >=1000 mg/dL (Normal); Ketones,Urine 20 mg/dL (Negative); Leukocyte Esterase,Urine Negative (Negative); Mucus,Urine Few per lpf (None-Few); Nitrite,Urine Negative (Negative); Protein,Urine >=300 mg/dL (Neg-Trace); Specific Gravity,Urine > 1.030 (1.010-1.025); Squamous Epithelial Cell,Urine Few per hpf (None-Few); Urobilinogen,Urine Normal (Normal)
[2021-04-14] MEDS ORDERED: 0.9 % Sodium Chloride 1,000 ML IV ONE (21:25)
[2021-04-14 23:13] LABS: VBG HCO3 24 mEq/L (21-27); VBG PCO2 35 mmHg (41-51); VBG PH 7.43 pH Units (7.32-7.42); VBG PO2 68 mmHg (25-50)
[2021-04-14] MEDS ORDERED: *HR* Heparin 5,000 UNIT/ML VIAL IVP PRN ×2 (23:22)
[2021-04-14] MEDS ORDERED: *HR* Heparin 5,000 UNIT/ML VIAL IVP ONE (23:22)
[2021-04-14 23:27] LABS: Magnesium 1.9 mg/dL (1.6-2.6); Phosphorous 1.8 mg/dL (2.7-4.5)
[2021-04-15 01:07] LABS: Hematocrit 43.2 % (37.5-50.1); Hemoglobin 14.9 g/dL (12.9-16.9); Mean Corpuscular HGB Conc 34.5 g/dL (31.6-35.5); Mean Corpuscular Hemoglobin 30.3 pg (28.0-33.3); Mean Platelet Volume 12.1 fL (9.4-12.4); Platelet Count 207 K/mcL (140-400); Red Blood Count 4.91 M/mcL (4.19-5.50); Red Cell Distribution Width 12.8 % (11.5-14.5); White Blood Count 13.6 K/mcL (4.3-11.1)
[2021-04-15 01:09] LABS: BUN/Creatinine Ratio 18 (6-26); Blood Urea Nitrogen 21 mg/dL (8-23); Calcium 8.6 mg/dL (8.6-10.3); Carbon Dioxide 26 mEq/L (23-29); Chloride 101 mEq/L (98-107); Glucose 351 mg/dL (70-105); Osmolality,Calculated 301 (280-300); Potassium 3.5 mEq/L (3.5-5.1); Sodium 137 mEq/L (136-145); eGFR For African Americans > 60 (> 60); eGFR For Non-African Americans > 60 (> 60)
[2021-04-15] MEDS ORDERED: *HR* Labetalol 20 MG/4 ML SYRINGE IVP ONE (01:23)
[2021-04-15 01:30] LABS: Prothrombin Time 10.7 Seconds (9.4-12.1)
[2021-04-15 01:32] LABS: Heparin anti-factor XA UFH < 0.04 IU/mL (0.30-0.70)
[2021-04-15] MEDS ORDERED: Melatonin 3 MG TABLET PO PRN (01:32)
[2021-04-15] MEDS ORDERED: Naloxone 0.4 MG/ML INJ IVP PRN (01:32)
[2021-04-15] MEDS ORDERED: Ondansetron 4 MG/2 ML VIAL IVP PRN (01:32)
[2021-04-15] MEDS ORDERED: *HR* HYDROcodone/Acet 5/325 mg TABLET PO PRN (01:32)
[2021-04-15] MEDS ORDERED: Acetaminophen 325 MG TABLET PO PRN (01:32)
[2021-04-15] MEDS ORDERED: *HR* Dextrose 50 % in Water (Syg) 50 ML SYRINGE IVP PRN (01:51)
[2021-04-15] MEDS ORDERED: D5% in Water 1,000 ML IVC PRN (01:51)
[2021-04-15] MEDS ORDERED: Dextrose Gel 15 GM/37.5 ML TUBE PO PRN ×2 (01:51)
[2021-04-15] MEDS: Heparin 25,000UNIT/250ML 1/2NS 25,000 UNIT/250 ML IV.SOLN IVC SCH (02:08)
[2021-04-15] MEDS ORDERED: Perflutren Lipid Microsphere 1.3 ML in 0.9 % Sodium Chloride 8.7 ML IVP PRN (03:32)
[2021-04-15] MEDS ORDERED: Aspirin Enteric Coated 325 MG Tablet PO ONE (03:33)
[2021-04-15 05:48] LABS: Basophils % 0.3 %; Eosinophils % 0.1 %; Hematocrit 46.2 % (37.5-50.1); Hemoglobin 15.4 g/dL (12.9-16.9); Immature Granulocytes % 0.3 % (0-4); Lymphocytes # 2.2 K/mcL (0.6-4.6); Mean Corpuscular HGB Conc 33.3 g/dL (31.6-35.5); Mean Corpuscular Hemoglobin 30.7 pg (28.0-33.3); Mean Corpuscular Volume 92.2 fL (83.0-100.0); Mean Platelet Volume 12.4 fL (9.4-12.4); Monocytes % 6.6 %; Neutrophils # 11.2 K/mcL (1.6-8.9); Platelet Count 230 K/mcL (140-400); Red Blood Count 5.01 M/mcL (4.19-5.50); Segmented Neutrophils % 77.7 %; White Blood Count 14.4 K/mcL (4.3-11.1)
[2021-04-15] MEDS ORDERED: Ringers Solution, Lactated 500 ML IVC ONE (06:15)
[2021-04-15] MEDS ORDERED: Insulin DETEMIR 100 UNIT/ML X5UNITS SUBQ ONE (06:25)
[2021-04-15] MEDS: Insulin LISPRO 300 UNITS/3 ML VIAL SUBQ SCH ×3 (06:37→17:21)
[2021-04-15] MEDS: *HR* Labetalol 20 MG/4 ML SYRINGE IVP PRN ×2 (07:32→21:49)
[2021-04-15 08:06] LABS: Alanine Aminotransferase 7 Units/L (7-52); Albumin 3.3 g/dL (3.5-5.7); Albumin/Globulin Ratio 1.2 (1.1-2.2); Alkaline Phosphatase 80 Units/L (34-104); Aspartate Amino Transferase 20 Units/L (13-39); BUN/Creatinine Ratio 18 (6-26); Bilirubin,Total 0.9 mg/dL (0.3-1.0); Blood Urea Nitrogen 21 mg/dL (8-23); Calcium 8.9 mg/dL (8.6-10.3); Carbon Dioxide 19 mEq/L (23-29); Chloride 102 mEq/L (98-107); Globulin 2.8 g/dL (2.4-3.5); Glucose 352 mg/dL (70-105); Osmolality,Calculated 303 (280-300); Phosphorous 3.3 mg/dL (2.7-4.5); Potassium 3.6 mEq/L (3.5-5.1); Sodium 138 mEq/L (136-145); Total Protein 6.1 g/dL (6.4-8.9); eGFR For African Americans > 60 (> 60); eGFR For Non-African Americans > 60 (> 60)
[2021-04-15] MEDS: Aspirin 81 MG TAB.CHEW PO SCH (09:29)
[2021-04-15] MEDS: lisinopriL 20 MG TABLET PO SCH (09:29)
[2021-04-15 10:22] LABS: Estimated Average Glucose 398 mg/dl; Hemoglobin A1C 15.5 %
[2021-04-15] MEDS: carvediloL 6.25 MG TABLET PO SCH ×2 (14:04→21:47)
[2021-04-15] MEDS: Insulin DETEMIR 100 UNIT/ML X5UNITS SUBQ SCH (21:48)
[2021-04-16] MEDS: Insulin LISPRO 300 UNITS/3 ML VIAL SUBQ SCH ×4 (00:11→16:33)
[2021-04-16 01:21] LABS: Basophils % 0.4 %; Eosinophils % 0.4 %; Hematocrit 41.5 % (37.5-50.1); Hemoglobin 14.4 g/dL (12.9-16.9); Immature Granulocytes % 0.4 % (0-4); Lymphocytes # 2.5 K/mcL (0.6-4.6); Lymphocytes % 22.2 %; Mean Corpuscular HGB Conc 34.7 g/dL (31.6-35.5); Mean Corpuscular Hemoglobin 30.8 pg (28.0-33.3); Mean Corpuscular Volume 88.9 fL (83.0-100.0); Mean Platelet Volume 11.9 fL (9.4-12.4); Monocytes # 0.9 K/mcL (0.0-1.3); Monocytes % 8.3 %; Neutrophils # 7.8 K/mcL (1.6-8.9); Platelet Count 203 K/mcL (140-400); Red Blood Count 4.67 M/mcL (4.19-5.50); Red Cell Distribution Width 13.1 % (11.5-14.5); Segmented Neutrophils % 68.3 %; White Blood Count 11.3 K/mcL (4.3-11.1)
[2021-04-16 01:37] LABS: BUN/Creatinine Ratio 21 (6-26); Blood Urea Nitrogen 22 mg/dL (8-23); Calcium 8.6 mg/dL (8.6-10.3); Carbon Dioxide 26 mEq/L (23-29); Chloride 105 mEq/L (98-107); Glucose 217 mg/dL (70-105); Osmolality,Calculated 300 (280-300); Potassium 3.1 mEq/L (3.5-5.1); Sodium 140 mEq/L (136-145); eGFR For African Americans > 60 (> 60); eGFR For Non-African Americans > 60 (> 60)
[2021-04-16] MEDS: Heparin 25,000UNIT/250ML 1/2NS 25,000 UNIT/250 ML IV.SOLN IVC SCH (02:17)
[2021-04-16] MEDS: carvediloL 6.25 MG TABLET PO SCH (07:33)
[2021-04-16] MEDS: Aspirin 81 MG TAB.CHEW PO SCH (07:34)
[2021-04-16] MEDS: lisinopriL 20 MG TABLET PO SCH (07:34)
[2021-04-16] MEDS ORDERED: carvediloL 6.25 MG TABLET PO ONE (08:37)
[2021-04-16 08:46] LABS: Chol/HDL Ratio 5.2 (0-4.9); Cholesterol 290 mg/dL (< 200); HDL Cholesterol 56 mg/dL (40-59); LDL Cholesterol,Calculated 200 mg/dL (< 100); Triglycerides 168 mg/dL (< 150)
[2021-04-16] MEDS: hydroCHLOROthiazide 25 MG TABLET PO SCH (14:16)
[2021-04-16] MEDS: carvediloL 25 MG TABLET PO SCH (16:30)
[2021-04-16] MEDS ORDERED: carvediloL 6.25 MG TABLET PO SCH (17:00)
[2021-04-16] MEDS ORDERED: lisinopriL 20 MG TABLET PO SCH (21:00)
[2021-04-16] MEDS: Insulin DETEMIR 100 UNIT/ML X5UNITS SUBQ SCH (22:13)
[2021-04-17] MEDS: carvediloL 25 MG TABLET PO SCH ×2 (07:56→21:26)
[2021-04-17] MEDS: hydroCHLOROthiazide 25 MG TABLET PO SCH (07:57)
[2021-04-17] MEDS: Aspirin 81 MG TAB.CHEW PO SCH (07:57)
[2021-04-17] MEDS: Insulin LISPRO 300 UNITS/3 ML VIAL SUBQ SCH ×3 (07:57→16:25)
[2021-04-17] MEDS ORDERED: lisinopriL 20 MG TABLET PO SCH ×2 (09:00)
[2021-04-17] MEDS ORDERED: amLODIPine 5 MG TABLET PO SCH (09:00)
[2021-04-17 09:02] LABS: Basophils % 0.5 %; Eosinophils # 0.1 K/mcL (0.0-0.6); Eosinophils % 1.5 %; Hematocrit 42.8 % (37.5-50.1); Hemoglobin 14.5 g/dL (12.9-16.9); Immature Granulocytes % 0.1 % (0-4); Lymphocytes # 1.6 K/mcL (0.6-4.6); Lymphocytes % 19.9 %; Mean Corpuscular HGB Conc 33.9 g/dL (31.6-35.5); Mean Corpuscular Hemoglobin 30.9 pg (28.0-33.3); Mean Corpuscular Volume 91.1 fL (83.0-100.0); Mean Platelet Volume 12.1 fL (9.4-12.4); Monocytes # 0.7 K/mcL (0.0-1.3); Monocytes % 9.5 %; Neutrophils # 5.3 K/mcL (1.6-8.9); Platelet Count 158 K/mcL (140-400); Red Cell Distribution Width 12.9 % (11.5-14.5); Segmented Neutrophils % 68.5 %; White Blood Count 7.8 K/mcL (4.3-11.1)
[2021-04-17 09:23] LABS: BUN/Creatinine Ratio 20 (6-26); Blood Urea Nitrogen 23 mg/dL (8-23); Calcium 8.3 mg/dL (8.6-10.3); Carbon Dioxide 29 mEq/L (23-29); Chloride 105 mEq/L (98-107); Glucose 238 mg/dL (70-105); Osmolality,Calculated 301 (280-300); Potassium 3.5 mEq/L (3.5-5.1); Sodium 140 mEq/L (136-145); eGFR For African Americans > 60 (> 60); eGFR For Non-African Americans > 60 (> 60)
[2021-04-17] MEDS: *HR* Heparin 5,000 UNIT/ML VIAL SQ SCH ×2 (12:22→17:21)
[2021-04-17] MEDS: Insulin DETEMIR 100 UNIT/ML X5UNITS SUBQ SCH ×2 (12:49→21:26)
[2021-04-18 04:18] VITALS: O2SAT 96
[2021-04-18] MEDS: *HR* Heparin 5,000 UNIT/ML VIAL SQ SCH (05:02)
[2021-04-18 07:25] VITALS: BP 155/73; PULSE 62; TEMP 98.1
[2021-04-18] MEDS: hydroCHLOROthiazide 25 MG TABLET PO SCH (09:00)
[2021-04-18] MEDS: carvediloL 25 MG TABLET PO SCH (09:00)
[2021-04-18] MEDS: Insulin DETEMIR 100 UNIT/ML X5UNITS SUBQ SCH (09:01)
[2021-04-18] MEDS: Aspirin 81 MG TAB.CHEW PO SCH (09:01)
[2021-04-18] MEDS: Insulin LISPRO 300 UNITS/3 ML VIAL SUBQ SCH (09:02)
[2021-04-18] MEDS ORDERED: amLODIPine 5 MG TABLET PO SCH (12:00)
[2021-04-18] MEDS ORDERED: lisinopriL 20 MG TABLET PO SCH (14:00)
== END 2021-04-18 11:54 | disposition home or self-care (01) | DRG 177 ==
LOC: EMEROOARM 18:04 → SUATTDRO 04-15 02:36 → 2ANU 04-15 02:36
PROVIDERS: ADMIT Internal Medicine; ATTEND Internal Medicine

== ENCOUNTER 2021-04-24 17:39 | Inpatient (IN) ==
[2021-04-24] MEDS ORDERED: 0.9 % Sodium Chloride 1,000 ML IV ONE ×2 (18:32→19:37)
[2021-04-24 18:59] LABS: Prothrombin Time 11.5 Seconds (9.4-12.1)
[2021-04-24 19:01] LABS: Activated Partial Thrombo Time 30.4 Seconds (26.0-36.0)
[2021-04-24 19:09] LABS: Basophils # 0.1 K/mcL (0.0-0.2); Basophils % 0.5 %; Eosinophils % 0.1 %; Hematocrit 47.2 % (37.5-50.1); Hemoglobin 15.6 g/dL (12.9-16.9); Immature Granulocytes % 0.5 % (0-4); Lymphocytes # 2.3 K/mcL (0.6-4.6); Lymphocytes % 16.4 %; Mean Corpuscular HGB Conc 33.1 g/dL (31.6-35.5); Mean Corpuscular Hemoglobin 30.1 pg (28.0-33.3); Mean Corpuscular Volume 91.1 fL (83.0-100.0); Mean Platelet Volume 12.4 fL (9.4-12.4); Monocytes # 1.4 K/mcL (0.0-1.3); Monocytes % 9.9 %; Neutrophils # 10.1 K/mcL (1.6-8.9); Platelet Count 320 K/mcL (140-400); Red Blood Count 5.18 M/mcL (4.19-5.50); Red Cell Distribution Width 12.6 % (11.5-14.5); Segmented Neutrophils % 72.6 %; White Blood Count 13.9 K/mcL (4.3-11.1)
[2021-04-24] MEDS ORDERED: Isovue-370 500 ML BOTTLE IVP ONE (20:38)
[2021-04-24 21:32] LABS: Bilirubin,Urine Negative (Negative); Blood,Urine Small (Negative); Clarity,Urine Clear (Clear); Color,Urine Light-Yellow (Yellow); Glucose,Urine (UA) >=1000 mg/dL (Normal); Ketones,Urine 80 mg/dL (Negative); Leukocyte Esterase,Urine Negative (Negative); Nitrite,Urine Negative (Negative); PH,Urine 5.5 pH Units (5.0-8.0); Protein,Urine 200 mg/dL (Neg-Trace); Specific Gravity,Urine > 1.030 (1.010-1.025); Squamous Epithelial Cell,Urine Few per hpf (None-Few); Urobilinogen,Urine Normal (Normal)
[2021-04-24 21:41] LABS: Influenza A PCR Negative (Negative); Influenza B PCR Negative (Negative); Resp. Syncytial Virus PCR Negative (Negative)
[2021-04-24 21:48] LABS: SARS-CoV-2 by PCR (In House) Negative (Negative)
[2021-04-24 23:27] LABS: Amphetamine Screen,Urine Negative ng/mL (Cutoff=1000); Barbiturate Screen,Urine Negative ng/mL (Cutoff=200); Benzodiazepines Screen,Urine Negative ng/mL (Cutoff=200); Cannabinoid Screen,Urine Negative ng/mL (Cutoff = 50); Cocaine Screen,Urine Negative ng/mL (Cutoff= 300); Opiate Screen,Urine Negative ng/mL (Cutoff=300); Phencyclidine Screen,Urine Negative ng/mL (Cutoff=25)
[2021-04-25 00:43] LABS: Acetaminophen < 10 mcg/mL (10-20); Alanine Aminotransferase 9 Units/L (7-52); Albumin/Globulin Ratio 1.1 (1.1-2.2); Alkaline Phosphatase 71 Units/L (34-104); Aspartate Amino Transferase 16 Units/L (13-39); BUN/Creatinine Ratio 23 (6-26); Bilirubin,Direct 0.1 mg/dL (0.0-0.2); Bilirubin,Indirect 0.3 mg/dL (0.0-1.0); Bilirubin,Total 0.4 mg/dL (0.3-1.0); Blood Urea Nitrogen 29 mg/dL (8-23); Calcium 8.9 mg/dL (8.6-10.3); Carbon Dioxide 17 mEq/L (23-29); Chloride 101 mEq/L (98-107); Creatine Kinase 225 Units/L (30-223); Ethanol < 10 mg/dL (Less than 10); Globulin 2.8 g/dL (2.4-3.5); Glucose 368 mg/dL (70-105); Osmolality,Calculated 313 (280-300); Potassium 3.6 mEq/L (3.5-5.1); Salicylate < 2.5 mg/dL (15.0-30.0); Sodium 141 mEq/L (136-145); Total Protein 5.8 g/dL (6.4-8.9); eGFR For African Americans > 60 (> 60); eGFR For Non-African Americans 58 (> 60)
[2021-04-25 01:00] LABS: Troponin I 0.22 ng/mL (< 0.04)
[2021-04-25 01:20] LABS: Thyroid Stimulating Hormone 1.013 mcIU/mL (0.340-5.600)
[2021-04-25] MEDS ORDERED: Naloxone 0.4 MG/ML INJ IVP PRN (03:41)
[2021-04-25 04:45] LABS: VBG HCO3 15 mEq/L (21-27); VBG PCO2 21 mmHg (41-51); VBG PH 7.45 pH Units (7.32-7.42); VBG PO2 206 mmHg (25-50)
[2021-04-25] MEDS ORDERED: Insulin Human Regular 10 UNIT in 0.9 % Sodium Chloride 10 ML IV ONE (05:06)
[2021-04-25 05:10] LABS: Hematocrit 43.4 % (37.5-50.1); Hemoglobin 14.5 g/dL (12.9-16.9); Mean Corpuscular HGB Conc 33.4 g/dL (31.6-35.5); Mean Corpuscular Hemoglobin 30.3 pg (28.0-33.3); Mean Corpuscular Volume 90.6 fL (83.0-100.0); Mean Platelet Volume 11.6 fL (9.4-12.4); Platelet Count 270 K/mcL (140-400); Red Blood Count 4.79 M/mcL (4.19-5.50); Red Cell Distribution Width 12.7 % (11.5-14.5); White Blood Count 10.8 K/mcL (4.3-11.1)
[2021-04-25 05:18] LABS: Prothrombin Time 11.3 Seconds (9.4-12.1)
[2021-04-25 05:21] LABS: Activated Partial Thrombo Time 29.5 Seconds (26.0-36.0)
[2021-04-25] MEDS ORDERED: 0.9 % Sodium Chloride 1,000 ML IV ONE (05:39)
[2021-04-25 06:38] LABS: BUN/Creatinine Ratio 21 (6-26); Blood Urea Nitrogen 26 mg/dL (8-23); Calcium 8.7 mg/dL (8.6-10.3); Carbon Dioxide 21 mEq/L (23-29); Chloride 106 mEq/L (98-107); Chol/HDL Ratio 4.8 (0-4.9); Cholesterol 162 mg/dL (< 200); Glucose 338 mg/dL (70-105); HDL Cholesterol 34 mg/dL (40-59); LDL Cholesterol,Calculated 93 mg/dL (< 100); Osmolality,Calculated 316 (280-300); Potassium 4.4 mEq/L (3.5-5.1); Sodium 144 mEq/L (136-145); Triglycerides 176 mg/dL (< 150); eGFR For African Americans > 60 (> 60); eGFR For Non-African Americans 57 (> 60)
[2021-04-25] MEDS ORDERED: Dextrose Gel 15 GM/37.5 ML TUBE PO PRN ×2 (06:41)
[2021-04-25] MEDS ORDERED: D5% in Water 1,000 ML IVC PRN (06:41)
[2021-04-25] MEDS ORDERED: *HR* Dextrose 50 % in Water (Syg) 50 ML SYRINGE IVP PRN (06:41)
[2021-04-25] MEDS: Insulin LISPRO 300 UNITS/3 ML VIAL SUBQ SCH ×7 (08:33→22:05)
[2021-04-25 10:08] LABS: Estimated Average Glucose 378 mg/dl; Hemoglobin A1C 14.8 %
[2021-04-25] MEDS: Insulin DETEMIR 100 UNIT/ML X5UNITS SUBQ SCH ×2 (10:21→20:28)
[2021-04-25] MEDS: Aspirin Enteric Coated 325 MG Tablet PO SCH (10:36)
[2021-04-25 11:36] LABS: BUN/Creatinine Ratio 20 (6-26); Blood Urea Nitrogen 25 mg/dL (8-23); Calcium 8.7 mg/dL (8.6-10.3); Carbon Dioxide 23 mEq/L (23-29); Chloride 110 mEq/L (98-107); Glucose 200 mg/dL (70-105); Osmolality,Calculated 316 (280-300); Potassium 3.5 mEq/L (3.5-5.1); Sodium 148 mEq/L (136-145); eGFR For African Americans > 60 (> 60); eGFR For Non-African Americans 57 (> 60)
[2021-04-25 15:50] LABS: ABG Base Excess 1 mEq/L (-2 to 3); ABG HCO3 26 mEq/L (21-27); ABG Oxygen Saturation 93 % (95-98); ABG PCO2 41 mmHg (35-45); ABG PO2 67 mmHg (85-104); ABG TCO2 27 mEq/L (20-26)
[2021-04-25] MEDS ORDERED: carvediloL 25 MG TABLET PO SCH (17:00)
[2021-04-25 17:43] LABS: BUN/Creatinine Ratio 19 (6-26); Blood Urea Nitrogen 23 mg/dL (8-23); Calcium 8.9 mg/dL (8.6-10.3); Carbon Dioxide 26 mEq/L (23-29); Chloride 112 mEq/L (98-107); Glucose 134 mg/dL (70-105); Osmolality,Calculated 316 (280-300); Potassium 3.4 mEq/L (3.5-5.1); Sodium 150 mEq/L (136-145); eGFR For African Americans > 60 (> 60); eGFR For Non-African Americans > 60 (> 60)
[2021-04-25] MEDS ORDERED: D5% in Water 1,000 ML IVC SCH (18:00)
[2021-04-26] MEDS: Insulin LISPRO 300 UNITS/3 ML VIAL SUBQ SCH ×8 (00:23→22:49)
[2021-04-26 00:44] LABS: Basophils % 0.4 %; Eosinophils # 0.1 K/mcL (0.0-0.6); Hematocrit 43.3 % (37.5-50.1); Hemoglobin 14.4 g/dL (12.9-16.9); Immature Granulocytes % 0.4 % (0-4); Lymphocytes # 2.5 K/mcL (0.6-4.6); Mean Corpuscular HGB Conc 33.3 g/dL (31.6-35.5); Mean Corpuscular Volume 90.2 fL (83.0-100.0); Mean Platelet Volume 11.1 fL (9.4-12.4); Monocytes # 0.9 K/mcL (0.0-1.3); Monocytes % 8.1 %; Neutrophils # 7.3 K/mcL (1.6-8.9); Platelet Count 269 K/mcL (140-400); Segmented Neutrophils % 67.1 %; White Blood Count 10.8 K/mcL (4.3-11.1)
[2021-04-26 01:02] LABS: BUN/Creatinine Ratio 21 (6-26); Blood Urea Nitrogen 22 mg/dL (8-23); Calcium 8.4 mg/dL (8.6-10.3); Carbon Dioxide 25 mEq/L (23-29); Chloride 112 mEq/L (98-107); Glucose 161 mg/dL (70-105); Osmolality,Calculated 313 (280-300); Phosphorous 3.2 mg/dL (2.7-4.5); Potassium 3.2 mEq/L (3.5-5.1); Sodium 148 mEq/L (136-145); eGFR For African Americans > 60 (> 60); eGFR For Non-African Americans > 60 (> 60)
[2021-04-26] MEDS ORDERED: Insulin DETEMIR 100 UNIT/ML X5UNITS SUBQ ONE (01:58)
[2021-04-26] MEDS: Aspirin Enteric Coated 325 MG Tablet PO SCH (08:53)
[2021-04-26 09:33] LABS: BUN/Creatinine Ratio 19 (6-26); Blood Urea Nitrogen 20 mg/dL (8-23); Calcium 8.8 mg/dL (8.6-10.3); Carbon Dioxide 28 mEq/L (23-29); Chloride 110 mEq/L (98-107); Glucose 181 mg/dL (70-105); Osmolality,Calculated 309 (280-300); Potassium 3.5 mEq/L (3.5-5.1); Sodium 146 mEq/L (136-145); eGFR For African Americans > 60 (> 60); eGFR For Non-African Americans > 60 (> 60)
[2021-04-26] MEDS: Insulin DETEMIR 100 UNIT/ML X5UNITS SUBQ SCH (22:48)
[2021-04-27 04:08] LABS: BUN/Creatinine Ratio 16 (6-26); Blood Urea Nitrogen 14 mg/dL (8-23); Calcium 8.6 mg/dL (8.6-10.3); Carbon Dioxide 28 mEq/L (23-29); Chloride 108 mEq/L (98-107); Glucose 216 mg/dL (70-105); Magnesium 1.8 mg/dL (1.6-2.6); Osmolality,Calculated 307 (280-300); Phosphorous 3.1 mg/dL (2.7-4.5); Potassium 3.4 mEq/L (3.5-5.1); Sodium 145 mEq/L (136-145); eGFR For African Americans > 60 (> 60); eGFR For Non-African Americans > 60 (> 60)
[2021-04-27] MEDS: *HR* Enoxaparin 40 MG/0.4 ML SYRINGE SQ SCH (05:58)
[2021-04-27] MEDS: Aspirin Enteric Coated 325 MG Tablet PO SCH (08:32)
[2021-04-27] MEDS: amLODIPine 5 MG TABLET PO SCH (08:32)
[2021-04-27] MEDS: Insulin LISPRO 300 UNITS/3 ML VIAL SUBQ SCH ×4 (08:33→21:56)
[2021-04-27] MEDS: Insulin DETEMIR 100 UNIT/ML X5UNITS SUBQ SCH (21:55)
[2021-04-28 04:50] LABS: BUN/Creatinine Ratio 19 (6-26); Blood Urea Nitrogen 18 mg/dL (8-23); Calcium 8.3 mg/dL (8.6-10.3); Carbon Dioxide 28 mEq/L (23-29); Chloride 105 mEq/L (98-107); Glucose 229 mg/dL (70-105); Magnesium 1.7 mg/dL (1.6-2.6); Osmolality,Calculated 299 (280-300); Phosphorous 3.3 mg/dL (2.7-4.5); Potassium 3.4 mEq/L (3.5-5.1); Sodium 140 mEq/L (136-145); eGFR For African Americans > 60 (> 60); eGFR For Non-African Americans > 60 (> 60)
[2021-04-28] MEDS: *HR* Enoxaparin 40 MG/0.4 ML SYRINGE SQ SCH (06:36)
[2021-04-28] MEDS: amLODIPine 5 MG TABLET PO SCH (08:55)
[2021-04-28] MEDS: Aspirin Enteric Coated 325 MG Tablet PO SCH (08:56)
[2021-04-28] MEDS: Insulin LISPRO 300 UNITS/3 ML VIAL SUBQ SCH ×4 (08:56→22:53)
[2021-04-28] MEDS ORDERED: lisinopriL 20 MG TABLET PO SCH (09:00)
[2021-04-28] MEDS ORDERED: Insulin DETEMIR 100 UNIT/ML X5UNITS SUBQ SCH (21:00)
[2021-04-29 02:19] LABS: BUN/Creatinine Ratio 16 (6-26); Blood Urea Nitrogen 14 mg/dL (8-23); Calcium 7.9 mg/dL (8.6-10.3); Carbon Dioxide 25 mEq/L (23-29); Chloride 100 mEq/L (98-107); Glucose 268 mg/dL (70-105); Magnesium 1.5 mg/dL (1.6-2.6); Osmolality,Calculated 290 (280-300); Phosphorous 2.5 mg/dL (2.7-4.5); Potassium 3.8 mEq/L (3.5-5.1); Sodium 135 mEq/L (136-145); eGFR For African Americans > 60 (> 60); eGFR For Non-African Americans > 60 (> 60)
[2021-04-29] MEDS: *HR* Enoxaparin 40 MG/0.4 ML SYRINGE SQ SCH (06:48)
[2021-04-29] MEDS: Aspirin Enteric Coated 325 MG Tablet PO SCH (07:59)
[2021-04-29] MEDS: lisinopriL 20 MG TABLET PO SCH (07:59)
[2021-04-29] MEDS: amLODIPine 5 MG TABLET PO SCH (07:59)
[2021-04-29 08:00] LABS: Bilirubin,Urine Negative (Negative); Blood,Urine Large (Negative); Clarity,Urine Turbid (Clear); Color,Urine Light-Red (Yellow); Glucose,Urine (UA) >=1000 mg/dL (Normal); Ketones,Urine 20 mg/dL (Negative); Leukocyte Esterase,Urine Small (Negative); Nitrite,Urine Negative (Negative); PH,Urine 6.5 pH Units (5.0-8.0); Protein,Urine 200 mg/dL (Neg-Trace); Specific Gravity,Urine 1.022 (1.010-1.025); Urobilinogen,Urine Normal (Normal)
[2021-04-29] MEDS: Insulin LISPRO 300 UNITS/3 ML VIAL SUBQ SCH ×7 (08:00→21:04)
[2021-04-29] MEDS: Insulin DETEMIR 100 UNIT/ML X5UNITS SUBQ SCH ×2 (09:26→21:03)
[2021-04-30] MEDS: *HR* Enoxaparin 40 MG/0.4 ML SYRINGE SQ SCH (05:46)
[2021-04-30] MEDS: Aspirin Enteric Coated 325 MG Tablet PO SCH (08:19)
[2021-04-30] MEDS: lisinopriL 20 MG TABLET PO SCH (08:19)
[2021-04-30] MEDS: Insulin DETEMIR 100 UNIT/ML X5UNITS SUBQ SCH ×2 (08:20→22:20)
[2021-04-30] MEDS: amLODIPine 5 MG TABLET PO SCH (08:20)
[2021-04-30] MEDS: Insulin LISPRO 300 UNITS/3 ML VIAL SUBQ SCH ×7 (08:23→22:20)
[2021-04-30] MEDS: Cefdinir 300 MG CAPSULE PO SCH ×2 (13:11→22:15)
[2021-05-01] MEDS: *HR* Enoxaparin 40 MG/0.4 ML SYRINGE SQ SCH (05:21)
[2021-05-01 05:41] LABS: BUN/Creatinine Ratio 19 (6-26); Blood Urea Nitrogen 20 mg/dL (8-23); Calcium 8.1 mg/dL (8.6-10.3); Carbon Dioxide 25 mEq/L (23-29); Chloride 100 mEq/L (98-107); Glucose 156 mg/dL (70-105); Magnesium 1.9 mg/dL (1.6-2.6); Osmolality,Calculated 280 (280-300); Phosphorous 3.7 mg/dL (2.7-4.5); Potassium 3.9 mEq/L (3.5-5.1); Sodium 132 mEq/L (136-145); eGFR For African Americans > 60 (> 60); eGFR For Non-African Americans > 60 (> 60)
[2021-05-01 07:08] LABS: Basophils % 0.4 %; Eosinophils # 0.1 K/mcL (0.0-0.6); Hematocrit 42.6 % (37.5-50.1); Hemoglobin 14.3 g/dL (12.9-16.9); Immature Granulocytes % 0.4 % (0-4); Immature Platelets 12.1 % (1.1-6.1); Lymphocytes # 1.8 K/mcL (0.6-4.6); Lymphocytes % 25.2 %; Mean Corpuscular HGB Conc 33.6 g/dL (31.6-35.5); Mean Corpuscular Hemoglobin 30.5 pg (28.0-33.3); Mean Corpuscular Volume 90.8 fL (83.0-100.0); Monocytes # 0.9 K/mcL (0.0-1.3); Monocytes % 12.2 %; Neutrophils # 4.3 K/mcL (1.6-8.9); Platelet Count 189 K/mcL (140-400); Red Blood Count 4.69 M/mcL (4.19-5.50); Red Cell Distribution Width 12.7 % (11.5-14.5); Segmented Neutrophils % 59.8 %; White Blood Count 7.1 K/mcL (4.3-11.1)
[2021-05-01] MEDS: Insulin LISPRO 300 UNITS/3 ML VIAL SUBQ SCH ×7 (09:46→20:28)
[2021-05-01] MEDS: Cefdinir 300 MG CAPSULE PO SCH ×2 (09:47→19:36)
[2021-05-01] MEDS: Aspirin Enteric Coated 325 MG Tablet PO SCH (09:47)
[2021-05-01] MEDS: lisinopriL 20 MG TABLET PO SCH (09:48)
[2021-05-01] MEDS: amLODIPine 5 MG TABLET PO SCH (09:48)
[2021-05-01] MEDS: Insulin DETEMIR 100 UNIT/ML X5UNITS SUBQ SCH ×2 (09:51→20:29)
[2021-05-02] MEDS: *HR* Enoxaparin 40 MG/0.4 ML SYRINGE SQ SCH (05:37)
[2021-05-02] MEDS: Cefdinir 300 MG CAPSULE PO SCH ×2 (07:57→19:36)
[2021-05-02] MEDS: Aspirin Enteric Coated 325 MG Tablet PO SCH (07:57)
[2021-05-02] MEDS: lisinopriL 20 MG TABLET PO SCH (07:57)
[2021-05-02] MEDS: Insulin DETEMIR 100 UNIT/ML X5UNITS SUBQ SCH ×2 (07:57→20:50)
[2021-05-02] MEDS: Insulin LISPRO 300 UNITS/3 ML VIAL SUBQ SCH ×7 (07:58→20:16)
[2021-05-02] MEDS: amLODIPine 5 MG TABLET PO SCH (07:58)
[2021-05-03] MEDS: *HR* Enoxaparin 40 MG/0.4 ML SYRINGE SQ SCH (04:52)
[2021-05-03] MEDS: Insulin LISPRO 300 UNITS/3 ML VIAL SUBQ SCH ×7 (08:44→21:53)
[2021-05-03] MEDS: amLODIPine 5 MG TABLET PO SCH (08:46)
[2021-05-03] MEDS: Cefdinir 300 MG CAPSULE PO SCH ×2 (08:46→21:52)
[2021-05-03] MEDS: Aspirin Enteric Coated 325 MG Tablet PO SCH (08:46)
[2021-05-03] MEDS: Insulin DETEMIR 100 UNIT/ML X5UNITS SUBQ SCH ×2 (08:46→21:53)
[2021-05-03] MEDS: lisinopriL 20 MG TABLET PO SCH (08:46)
[2021-05-03] MEDS: hydrALAZINE 25 MG TABLET PO SCH ×2 (17:27→23:56)
[2021-05-04] MEDS: Ondansetron 4 MG/2 ML VIAL IVP PRN (02:48)
[2021-05-04] MEDS: *HR* Enoxaparin 40 MG/0.4 ML SYRINGE SQ SCH (05:32)
[2021-05-04] MEDS: Cefdinir 300 MG CAPSULE PO SCH ×2 (08:39→21:31)
[2021-05-04] MEDS: amLODIPine 5 MG TABLET PO SCH (08:39)
[2021-05-04] MEDS: hydrALAZINE 25 MG TABLET PO SCH ×3 (08:39→23:19)
[2021-05-04] MEDS: lisinopriL 20 MG TABLET PO SCH (08:39)
[2021-05-04] MEDS: Insulin LISPRO 300 UNITS/3 ML VIAL SUBQ SCH ×7 (08:40→21:31)
[2021-05-04] MEDS: Aspirin Enteric Coated 325 MG Tablet PO SCH (08:40)
[2021-05-04] MEDS: Insulin DETEMIR 100 UNIT/ML X5UNITS SUBQ SCH ×2 (08:40→21:32)
[2021-05-05 01:09] LABS: Basophils % 0.3 %; Eosinophils # 0.1 K/mcL (0.0-0.6); Eosinophils % 1.4 %; Hematocrit 40.9 % (37.5-50.1); Hemoglobin 13.9 g/dL (12.9-16.9); Immature Granulocytes % 0.4 % (0-4); Lymphocytes # 3.1 K/mcL (0.6-4.6); Lymphocytes % 30.4 %; Mean Corpuscular Hemoglobin 30.8 pg (28.0-33.3); Mean Corpuscular Volume 90.7 fL (83.0-100.0); Mean Platelet Volume 11.1 fL (9.4-12.4); Monocytes # 1.1 K/mcL (0.0-1.3); Monocytes % 10.6 %; Neutrophils # 5.8 K/mcL (1.6-8.9); Platelet Count 282 K/mcL (140-400); Red Blood Count 4.51 M/mcL (4.19-5.50); Red Cell Distribution Width 12.7 % (11.5-14.5); Segmented Neutrophils % 56.9 %; White Blood Count 10.3 K/mcL (4.3-11.1)
[2021-05-05 01:25] LABS: BUN/Creatinine Ratio 19 (6-26); Blood Urea Nitrogen 21 mg/dL (8-23); Calcium 8.4 mg/dL (8.6-10.3); Carbon Dioxide 24 mEq/L (23-29); Chloride 99 mEq/L (98-107); Glucose 171 mg/dL (70-105); Magnesium 1.9 mg/dL (1.6-2.6); Osmolality,Calculated 283 (280-300); Phosphorous 3.9 mg/dL (2.7-4.5); Potassium 3.9 mEq/L (3.5-5.1); Sodium 133 mEq/L (136-145); eGFR For African Americans > 60 (> 60); eGFR For Non-African Americans > 60 (> 60)
[2021-05-05] MEDS: *HR* Enoxaparin 40 MG/0.4 ML SYRINGE SQ SCH (05:58)
[2021-05-05] MEDS: amLODIPine 5 MG TABLET PO SCH (08:27)
[2021-05-05] MEDS: hydrALAZINE 25 MG TABLET PO SCH ×2 (08:27→18:23)
[2021-05-05] MEDS: lisinopriL 20 MG TABLET PO SCH (08:27)
[2021-05-05] MEDS: Aspirin Enteric Coated 325 MG Tablet PO SCH (08:27)
[2021-05-05] MEDS: Cefdinir 300 MG CAPSULE PO SCH ×2 (08:27→19:31)
[2021-05-05] MEDS: Insulin LISPRO 300 UNITS/3 ML VIAL SUBQ SCH ×7 (08:29→20:06)
[2021-05-05] MEDS: Insulin DETEMIR 100 UNIT/ML X5UNITS SUBQ SCH ×2 (08:31→20:07)
[2021-05-06] MEDS: *HR* Enoxaparin 40 MG/0.4 ML SYRINGE SQ SCH (04:57)
[2021-05-06] MEDS: lisinopriL 20 MG TABLET PO SCH (08:34)
[2021-05-06] MEDS: amLODIPine 5 MG TABLET PO SCH (08:35)
[2021-05-06] MEDS: hydrALAZINE 25 MG TABLET PO SCH ×3 (08:35→15:56)
[2021-05-06] MEDS: Aspirin Enteric Coated 325 MG Tablet PO SCH (08:35)
[2021-05-06] MEDS: Cefdinir 300 MG CAPSULE PO SCH ×2 (08:35→20:01)
[2021-05-06] MEDS: Insulin LISPRO 300 UNITS/3 ML VIAL SUBQ SCH ×7 (08:35→20:17)
[2021-05-06] MEDS: Insulin DETEMIR 100 UNIT/ML X5UNITS SUBQ SCH ×2 (08:40→20:17)
[2021-05-07] MEDS: hydrALAZINE 25 MG TABLET PO SCH ×4 (00:08→23:23)
[2021-05-07] MEDS: *HR* Enoxaparin 40 MG/0.4 ML SYRINGE SQ SCH (05:14)
[2021-05-07] MEDS: Insulin LISPRO 300 UNITS/3 ML VIAL SUBQ SCH ×7 (08:33→21:20)
[2021-05-07] MEDS: Insulin DETEMIR 100 UNIT/ML X5UNITS SUBQ SCH ×2 (08:35→21:20)
[2021-05-07] MEDS: lisinopriL 20 MG TABLET PO SCH (08:35)
[2021-05-07] MEDS: Cefdinir 300 MG CAPSULE PO SCH ×2 (08:36→21:19)
[2021-05-07] MEDS: Aspirin Enteric Coated 325 MG Tablet PO SCH (08:36)
[2021-05-07] MEDS: amLODIPine 5 MG TABLET PO SCH (08:36)
[2021-05-08] MEDS: *HR* Enoxaparin 40 MG/0.4 ML SYRINGE SQ SCH (04:23)
[2021-05-08] MEDS: Insulin LISPRO 300 UNITS/3 ML VIAL SUBQ SCH ×7 (07:05→21:03)
[2021-05-08] MEDS: lisinopriL 20 MG TABLET PO SCH (09:45)
[2021-05-08] MEDS: Cefdinir 300 MG CAPSULE PO SCH ×2 (09:45→21:02)
[2021-05-08] MEDS: amLODIPine 5 MG TABLET PO SCH (09:45)
[2021-05-08] MEDS: Aspirin Enteric Coated 325 MG Tablet PO SCH (09:45)
[2021-05-08] MEDS: hydrALAZINE 25 MG TABLET PO SCH ×3 (09:48→23:19)
[2021-05-08] MEDS: Insulin DETEMIR 100 UNIT/ML X5UNITS SUBQ SCH ×2 (09:49→21:02)
[2021-05-09] MEDS: *HR* Enoxaparin 40 MG/0.4 ML SYRINGE SQ SCH (05:07)
[2021-05-09] MEDS: Insulin LISPRO 300 UNITS/3 ML VIAL SUBQ SCH ×7 (10:05→21:09)
[2021-05-09] MEDS: Insulin DETEMIR 100 UNIT/ML X5UNITS SUBQ SCH ×2 (10:12→21:10)
[2021-05-09] MEDS: lisinopriL 20 MG TABLET PO SCH (10:12)
[2021-05-09] MEDS: hydrALAZINE 25 MG TABLET PO SCH ×2 (10:12→16:55)
[2021-05-09] MEDS: Aspirin Enteric Coated 325 MG Tablet PO SCH (10:12)
[2021-05-09] MEDS: amLODIPine 5 MG TABLET PO SCH (10:12)
[2021-05-09] MEDS: Cefdinir 300 MG CAPSULE PO SCH ×2 (10:12→21:10)
[2021-05-10] MEDS: hydrALAZINE 25 MG TABLET PO SCH ×3 (00:14→16:20)
[2021-05-10] MEDS: *HR* Enoxaparin 40 MG/0.4 ML SYRINGE SQ SCH (05:10)
[2021-05-10] MEDS: Insulin LISPRO 300 UNITS/3 ML VIAL SUBQ SCH ×5 (07:41→20:33)
[2021-05-10] MEDS: Aspirin Enteric Coated 325 MG Tablet PO SCH (07:51)
[2021-05-10] MEDS: Insulin DETEMIR 100 UNIT/ML X5UNITS SUBQ SCH ×2 (07:51→20:38)
[2021-05-10] MEDS: Cefdinir 300 MG CAPSULE PO SCH ×2 (07:51→20:37)
[2021-05-10] MEDS: amLODIPine 5 MG TABLET PO SCH (07:51)
[2021-05-10] MEDS: lisinopriL 20 MG TABLET PO SCH (07:51)
[2021-05-11] MEDS: hydrALAZINE 25 MG TABLET PO SCH ×4 (00:29→22:48)
[2021-05-11] MEDS: *HR* Enoxaparin 40 MG/0.4 ML SYRINGE SQ SCH (05:35)
[2021-05-11] MEDS: Insulin LISPRO 300 UNITS/3 ML VIAL SUBQ SCH ×4 (07:39→22:18)
[2021-05-11] MEDS: Cefdinir 300 MG CAPSULE PO SCH ×2 (08:44→22:19)
[2021-05-11] MEDS: amLODIPine 5 MG TABLET PO SCH (08:44)
[2021-05-11] MEDS: Aspirin Enteric Coated 325 MG Tablet PO SCH (08:45)
[2021-05-11] MEDS: lisinopriL 20 MG TABLET PO SCH (08:45)
[2021-05-11] MEDS: Insulin DETEMIR 100 UNIT/ML X5UNITS SUBQ SCH ×2 (09:51→22:48)
[2021-05-12] MEDS: *HR* Enoxaparin 40 MG/0.4 ML SYRINGE SQ SCH (06:06)
[2021-05-12] MEDS: Insulin DETEMIR 100 UNIT/ML X5UNITS SUBQ SCH ×2 (08:28→21:23)
[2021-05-12] MEDS: Insulin LISPRO 300 UNITS/3 ML VIAL SUBQ SCH ×4 (08:28→21:23)
[2021-05-12] MEDS: Aspirin Enteric Coated 325 MG Tablet PO SCH (08:31)
[2021-05-12] MEDS: hydrALAZINE 25 MG TABLET PO SCH ×2 (08:31→17:38)
[2021-05-12] MEDS: Cefdinir 300 MG CAPSULE PO SCH ×2 (08:31→21:22)
[2021-05-12] MEDS: amLODIPine 5 MG TABLET PO SCH (08:31)
[2021-05-12] MEDS: lisinopriL 20 MG TABLET PO SCH (08:31)
[2021-05-13] MEDS: hydrALAZINE 25 MG TABLET PO SCH ×4 (00:25→23:54)
[2021-05-13] MEDS: *HR* Enoxaparin 40 MG/0.4 ML SYRINGE SQ SCH (05:10)
[2021-05-13] MEDS: Insulin LISPRO 300 UNITS/3 ML VIAL SUBQ SCH ×4 (08:51→20:36)
[2021-05-13] MEDS: lisinopriL 20 MG TABLET PO SCH (08:51)
[2021-05-13] MEDS: Aspirin Enteric Coated 325 MG Tablet PO SCH (08:51)
[2021-05-13] MEDS: Cefdinir 300 MG CAPSULE PO SCH ×2 (08:52→20:40)
[2021-05-13] MEDS: amLODIPine 5 MG TABLET PO SCH (08:52)
[2021-05-13] MEDS: Insulin DETEMIR 100 UNIT/ML X5UNITS SUBQ SCH ×2 (10:31→20:40)
[2021-05-14] MEDS: *HR* Enoxaparin 40 MG/0.4 ML SYRINGE SQ SCH (05:22)
[2021-05-14] MEDS: Insulin DETEMIR 100 UNIT/ML X5UNITS SUBQ SCH ×2 (08:52→21:15)
[2021-05-14] MEDS: Aspirin Enteric Coated 325 MG Tablet PO SCH (08:53)
[2021-05-14] MEDS: hydrALAZINE 25 MG TABLET PO SCH ×2 (08:53→16:58)
[2021-05-14] MEDS: lisinopriL 20 MG TABLET PO SCH (08:53)
[2021-05-14] MEDS: amLODIPine 5 MG TABLET PO SCH (08:53)
[2021-05-14] MEDS: Insulin LISPRO 300 UNITS/3 ML VIAL SUBQ SCH ×4 (09:00→20:39)
[2021-05-15] MEDS: hydrALAZINE 25 MG TABLET PO SCH ×3 (00:42→17:06)
[2021-05-15] MEDS: *HR* Enoxaparin 40 MG/0.4 ML SYRINGE SQ SCH (05:23)
[2021-05-15] MEDS: lisinopriL 20 MG TABLET PO SCH (09:19)
[2021-05-15] MEDS: amLODIPine 5 MG TABLET PO SCH (09:19)
[2021-05-15] MEDS: Aspirin Enteric Coated 325 MG Tablet PO SCH (09:19)
[2021-05-15] MEDS: Insulin LISPRO 300 UNITS/3 ML VIAL SUBQ SCH ×4 (09:21→23:57)
[2021-05-15] MEDS: Insulin DETEMIR 100 UNIT/ML X5UNITS SUBQ SCH ×2 (09:26→22:23)
[2021-05-16] MEDS: hydrALAZINE 25 MG TABLET PO SCH ×3 (00:03→17:05)
[2021-05-16] MEDS: *HR* Enoxaparin 40 MG/0.4 ML SYRINGE SQ SCH (06:22)
[2021-05-16] MEDS: amLODIPine 5 MG TABLET PO SCH (08:48)
[2021-05-16] MEDS: Aspirin Enteric Coated 325 MG Tablet PO SCH (08:48)
[2021-05-16] MEDS: lisinopriL 20 MG TABLET PO SCH (08:48)
[2021-05-16] MEDS: Insulin LISPRO 300 UNITS/3 ML VIAL SUBQ SCH ×4 (08:49→21:45)
[2021-05-16] MEDS: Insulin DETEMIR 100 UNIT/ML X5UNITS SUBQ SCH ×2 (08:53→21:45)
[2021-05-17] MEDS: hydrALAZINE 25 MG TABLET PO SCH ×3 (02:33→15:40)
[2021-05-17] MEDS: *HR* Enoxaparin 40 MG/0.4 ML SYRINGE SQ SCH (06:55)
[2021-05-17] MEDS: Insulin LISPRO 300 UNITS/3 ML VIAL SUBQ SCH ×4 (08:24→21:47)
[2021-05-17] MEDS: lisinopriL 20 MG TABLET PO SCH (08:25)
[2021-05-17] MEDS: Aspirin Enteric Coated 325 MG Tablet PO SCH (08:25)
[2021-05-17] MEDS: Insulin DETEMIR 100 UNIT/ML X5UNITS SUBQ SCH ×2 (08:25→21:47)
[2021-05-17] MEDS: amLODIPine 5 MG TABLET PO SCH (08:25)
[2021-05-18] MEDS: hydrALAZINE 25 MG TABLET PO SCH ×3 (00:08→14:58)
[2021-05-18] MEDS: *HR* Enoxaparin 40 MG/0.4 ML SYRINGE SQ SCH (05:19)
[2021-05-18] MEDS: Insulin LISPRO 300 UNITS/3 ML VIAL SUBQ SCH ×4 (07:43→21:13)
[2021-05-18] MEDS: lisinopriL 20 MG TABLET PO SCH (07:45)
[2021-05-18] MEDS: Aspirin Enteric Coated 325 MG Tablet PO SCH (07:45)
[2021-05-18] MEDS: amLODIPine 5 MG TABLET PO SCH (07:45)
[2021-05-18] MEDS: Insulin DETEMIR 100 UNIT/ML X5UNITS SUBQ SCH ×2 (07:49→21:14)
[2021-05-19] MEDS: hydrALAZINE 25 MG TABLET PO SCH ×3 (00:05→16:20)
[2021-05-19] MEDS: *HR* Enoxaparin 40 MG/0.4 ML SYRINGE SQ SCH (06:04)
[2021-05-19] MEDS: Insulin LISPRO 300 UNITS/3 ML VIAL SUBQ SCH ×4 (07:51→21:41)
[2021-05-19] MEDS: Aspirin Enteric Coated 325 MG Tablet PO SCH (07:52)
[2021-05-19] MEDS: amLODIPine 5 MG TABLET PO SCH (07:52)
[2021-05-19] MEDS: Insulin DETEMIR 100 UNIT/ML X5UNITS SUBQ SCH ×2 (07:52→21:46)
[2021-05-19] MEDS: lisinopriL 20 MG TABLET PO SCH (07:53)
[2021-05-20] MEDS: hydrALAZINE 25 MG TABLET PO SCH ×3 (00:27→16:20)
[2021-05-20] MEDS: *HR* Enoxaparin 40 MG/0.4 ML SYRINGE SQ SCH (05:33)
[2021-05-20] MEDS: Aspirin Enteric Coated 325 MG Tablet PO SCH (08:13)
[2021-05-20] MEDS: lisinopriL 20 MG TABLET PO SCH (08:13)
[2021-05-20] MEDS: amLODIPine 5 MG TABLET PO SCH (08:13)
[2021-05-20] MEDS: Insulin DETEMIR 100 UNIT/ML X5UNITS SUBQ SCH ×2 (08:14→21:53)
[2021-05-20] MEDS: Insulin LISPRO 300 UNITS/3 ML VIAL SUBQ SCH ×4 (08:20→21:52)
[2021-05-20] MEDS: *HR* Metformin 500 MG TABLET PO SCH (16:20)
[2021-05-21] MEDS: *HR* Enoxaparin 40 MG/0.4 ML SYRINGE SQ SCH (05:26)
[2021-05-21] MEDS: hydrALAZINE 25 MG TABLET PO SCH ×3 (05:27→17:32)
[2021-05-21] MEDS: Aspirin Enteric Coated 325 MG Tablet PO SCH (08:39)
[2021-05-21] MEDS: lisinopriL 20 MG TABLET PO SCH (08:39)
[2021-05-21] MEDS: *HR* Metformin 500 MG TABLET PO SCH ×2 (08:39→17:32)
[2021-05-21] MEDS: Insulin DETEMIR 100 UNIT/ML X5UNITS SUBQ SCH ×2 (08:40→21:07)
[2021-05-21] MEDS: amLODIPine 5 MG TABLET PO SCH (08:40)
[2021-05-21] MEDS: Insulin LISPRO 300 UNITS/3 ML VIAL SUBQ SCH ×4 (08:41→20:49)
[2021-05-22] MEDS: hydrALAZINE 25 MG TABLET PO SCH ×3 (00:39→16:13)
[2021-05-22] MEDS: *HR* Enoxaparin 40 MG/0.4 ML SYRINGE SQ SCH (05:38)
[2021-05-22] MEDS: amLODIPine 5 MG TABLET PO SCH (08:20)
[2021-05-22] MEDS: Aspirin Enteric Coated 325 MG Tablet PO SCH (08:20)
[2021-05-22] MEDS: lisinopriL 20 MG TABLET PO SCH (08:21)
[2021-05-22] MEDS: *HR* Metformin 500 MG TABLET PO SCH ×2 (08:21→16:13)
[2021-05-22] MEDS: Insulin DETEMIR 100 UNIT/ML X5UNITS SUBQ SCH ×2 (08:22→19:56)
[2021-05-22] MEDS: Insulin LISPRO 300 UNITS/3 ML VIAL SUBQ SCH ×4 (08:23→19:51)
[2021-05-23] MEDS: hydrALAZINE 25 MG TABLET PO SCH ×3 (04:37→17:24)
[2021-05-23] MEDS: *HR* Enoxaparin 40 MG/0.4 ML SYRINGE SQ SCH (04:39)
[2021-05-23] MEDS: Insulin DETEMIR 100 UNIT/ML X5UNITS SUBQ SCH ×2 (08:27→19:50)
[2021-05-23] MEDS: amLODIPine 5 MG TABLET PO SCH (08:27)
[2021-05-23] MEDS: lisinopriL 20 MG TABLET PO SCH (08:27)
[2021-05-23] MEDS: Insulin LISPRO 300 UNITS/3 ML VIAL SUBQ SCH ×4 (08:27→21:07)
[2021-05-23] MEDS: Aspirin Enteric Coated 325 MG Tablet PO SCH (08:28)
[2021-05-23] MEDS: *HR* Metformin 500 MG TABLET PO SCH ×2 (08:28→17:24)
[2021-05-24] MEDS: hydrALAZINE 25 MG TABLET PO SCH ×3 (00:02→17:11)
[2021-05-24] MEDS: *HR* Enoxaparin 40 MG/0.4 ML SYRINGE SQ SCH (05:18)
[2021-05-24] MEDS: Ondansetron 4 MG/2 ML VIAL IVP PRN (05:37)
[2021-05-24] MEDS: amLODIPine 5 MG TABLET PO SCH (08:23)
[2021-05-24] MEDS: lisinopriL 20 MG TABLET PO SCH (08:23)
[2021-05-24] MEDS: *HR* Metformin 500 MG TABLET PO SCH ×2 (08:24→17:11)
[2021-05-24] MEDS: Aspirin Enteric Coated 325 MG Tablet PO SCH (08:24)
[2021-05-24] MEDS: Insulin DETEMIR 100 UNIT/ML X5UNITS SUBQ SCH ×2 (08:25→21:22)
[2021-05-24] MEDS: Insulin LISPRO 300 UNITS/3 ML VIAL SUBQ SCH ×4 (08:26→21:26)
[2021-05-25] MEDS: hydrALAZINE 25 MG TABLET PO SCH ×3 (04:34→16:41)
[2021-05-25] MEDS: *HR* Enoxaparin 40 MG/0.4 ML SYRINGE SQ SCH (05:30)
[2021-05-25] MEDS: Insulin LISPRO 300 UNITS/3 ML VIAL SUBQ SCH ×4 (08:51→21:31)
[2021-05-25] MEDS: Insulin DETEMIR 100 UNIT/ML X5UNITS SUBQ SCH ×2 (09:00→21:30)
[2021-05-25] MEDS: lisinopriL 20 MG TABLET PO SCH (09:00)
[2021-05-25] MEDS: *HR* Metformin 500 MG TABLET PO SCH ×2 (09:00→16:41)
[2021-05-25] MEDS: amLODIPine 5 MG TABLET PO SCH (09:00)
[2021-05-25] MEDS: Aspirin Enteric Coated 325 MG Tablet PO SCH (09:00)
[2021-05-26] MEDS: hydrALAZINE 25 MG TABLET PO SCH ×3 (03:52→16:51)
[2021-05-26] MEDS: *HR* Enoxaparin 40 MG/0.4 ML SYRINGE SQ SCH (05:15)
[2021-05-26] MEDS: Insulin LISPRO 300 UNITS/3 ML VIAL SUBQ SCH ×4 (08:00→20:31)
[2021-05-26] MEDS: Aspirin Enteric Coated 325 MG Tablet PO SCH (08:05)
[2021-05-26] MEDS: *HR* Metformin 500 MG TABLET PO SCH ×2 (08:06→16:51)
[2021-05-26] MEDS: lisinopriL 20 MG TABLET PO SCH (08:06)
[2021-05-26] MEDS: amLODIPine 5 MG TABLET PO SCH (08:06)
[2021-05-26] MEDS: Insulin DETEMIR 100 UNIT/ML X5UNITS SUBQ SCH ×2 (08:06→20:30)
[2021-05-27] MEDS: hydrALAZINE 25 MG TABLET PO SCH ×4 (00:52→23:58)
[2021-05-27] MEDS: *HR* Enoxaparin 40 MG/0.4 ML SYRINGE SQ SCH (04:58)
[2021-05-27] MEDS: *HR* Metformin 500 MG TABLET PO SCH ×2 (07:41→16:50)
[2021-05-27] MEDS: amLODIPine 5 MG TABLET PO SCH (07:41)
[2021-05-27] MEDS: Aspirin Enteric Coated 325 MG Tablet PO SCH (07:41)
[2021-05-27] MEDS: lisinopriL 20 MG TABLET PO SCH (07:42)
[2021-05-27] MEDS: Insulin DETEMIR 100 UNIT/ML X5UNITS SUBQ SCH ×2 (07:46→21:20)
[2021-05-27] MEDS: Insulin LISPRO 300 UNITS/3 ML VIAL SUBQ SCH ×4 (07:46→21:14)
[2021-05-28] MEDS: *HR* Enoxaparin 40 MG/0.4 ML SYRINGE SQ SCH (05:23)
[2021-05-28] MEDS: Insulin LISPRO 300 UNITS/3 ML VIAL SUBQ SCH ×4 (08:17→20:52)
[2021-05-28] MEDS: lisinopriL 20 MG TABLET PO SCH (09:53)
[2021-05-28] MEDS: Insulin DETEMIR 100 UNIT/ML X5UNITS SUBQ SCH ×2 (09:53→20:58)
[2021-05-28] MEDS: Aspirin Enteric Coated 325 MG Tablet PO SCH (09:53)
[2021-05-28] MEDS: amLODIPine 5 MG TABLET PO SCH (09:54)
[2021-05-28] MEDS: *HR* Metformin 500 MG TABLET PO SCH ×2 (09:55→16:56)
[2021-05-28] MEDS: hydrALAZINE 25 MG TABLET PO SCH ×3 (09:55→23:58)
[2021-05-29] MEDS: *HR* Enoxaparin 40 MG/0.4 ML SYRINGE SQ SCH (05:19)
[2021-05-29] MEDS: lisinopriL 20 MG TABLET PO SCH (08:28)
[2021-05-29] MEDS: Aspirin Enteric Coated 325 MG Tablet PO SCH (08:28)
[2021-05-29] MEDS: Insulin LISPRO 300 UNITS/3 ML VIAL SUBQ SCH ×4 (08:28→20:46)
[2021-05-29] MEDS: amLODIPine 5 MG TABLET PO SCH (08:28)
[2021-05-29] MEDS: Insulin DETEMIR 100 UNIT/ML X5UNITS SUBQ SCH ×2 (08:28→20:55)
[2021-05-29] MEDS: hydrALAZINE 25 MG TABLET PO SCH ×2 (08:28→16:28)
[2021-05-29] MEDS: *HR* Metformin 500 MG TABLET PO SCH ×2 (08:28→16:28)
[2021-05-30] MEDS: hydrALAZINE 25 MG TABLET PO SCH ×3 (00:19→16:19)
[2021-05-30] MEDS: *HR* Enoxaparin 40 MG/0.4 ML SYRINGE SQ SCH (05:29)
[2021-05-30] MEDS: Insulin LISPRO 300 UNITS/3 ML VIAL SUBQ SCH ×4 (08:05→20:40)
[2021-05-30] MEDS: lisinopriL 20 MG TABLET PO SCH (08:06)
[2021-05-30] MEDS: Insulin DETEMIR 100 UNIT/ML X5UNITS SUBQ SCH ×2 (08:06→20:44)
[2021-05-30] MEDS: amLODIPine 5 MG TABLET PO SCH (08:06)
[2021-05-30] MEDS: Aspirin Enteric Coated 325 MG Tablet PO SCH (08:06)
[2021-05-30] MEDS: *HR* Metformin 500 MG TABLET PO SCH ×2 (08:06→16:19)
[2021-05-31] MEDS: hydrALAZINE 25 MG TABLET PO SCH ×4 (00:23→23:46)
[2021-05-31] MEDS: *HR* Enoxaparin 40 MG/0.4 ML SYRINGE SQ SCH (05:25)
[2021-05-31] MEDS: Insulin LISPRO 300 UNITS/3 ML VIAL SUBQ SCH ×4 (07:37→20:39)
[2021-05-31] MEDS: *HR* Metformin 500 MG TABLET PO SCH ×2 (07:59→16:42)
[2021-05-31] MEDS: amLODIPine 5 MG TABLET PO SCH (07:59)
[2021-05-31] MEDS: Aspirin Enteric Coated 325 MG Tablet PO SCH (07:59)
[2021-05-31] MEDS: lisinopriL 20 MG TABLET PO SCH (07:59)
[2021-05-31] MEDS: Insulin DETEMIR 100 UNIT/ML X5UNITS SUBQ SCH ×2 (08:02→20:45)
[2021-06-01] MEDS: *HR* Enoxaparin 40 MG/0.4 ML SYRINGE SQ SCH (05:13)
[2021-06-01] MEDS: Insulin LISPRO 300 UNITS/3 ML VIAL SUBQ SCH ×4 (07:47→21:08)
[2021-06-01] MEDS: amLODIPine 5 MG TABLET PO SCH (09:40)
[2021-06-01] MEDS: hydrALAZINE 25 MG TABLET PO SCH ×2 (09:40→17:18)
[2021-06-01] MEDS: *HR* Metformin 500 MG TABLET PO SCH ×2 (09:40→17:19)
[2021-06-01] MEDS: Aspirin Enteric Coated 325 MG Tablet PO SCH (09:41)
[2021-06-01] MEDS: Insulin DETEMIR 100 UNIT/ML X5UNITS SUBQ SCH ×2 (09:41→21:05)
[2021-06-01] MEDS: lisinopriL 20 MG TABLET PO SCH (09:43)
[2021-06-02] MEDS: hydrALAZINE 25 MG TABLET PO SCH ×3 (00:14→15:28)
[2021-06-02] MEDS: *HR* Enoxaparin 40 MG/0.4 ML SYRINGE SQ SCH (05:16)
[2021-06-02] MEDS: lisinopriL 20 MG TABLET PO SCH (08:30)
[2021-06-02] MEDS: Aspirin Enteric Coated 325 MG Tablet PO SCH (08:30)
[2021-06-02] MEDS: *HR* Metformin 500 MG TABLET PO SCH (08:30)
[2021-06-02] MEDS: amLODIPine 5 MG TABLET PO SCH (08:30)
[2021-06-02] MEDS: Insulin LISPRO 300 UNITS/3 ML VIAL SUBQ SCH ×2 (08:31→11:52)
[2021-06-02] MEDS: Insulin DETEMIR 100 UNIT/ML X5UNITS SUBQ SCH (08:33)
[2021-06-02 12:42] LABS: Influenza A PCR Negative (Negative); Influenza B PCR Negative (Negative); Resp. Syncytial Virus PCR Negative (Negative)
[2021-06-02 12:43] LABS: SARS-CoV-2 by PCR (In House) Negative (Negative)
[2021-06-02 15:48] VITALS: BP 145/78; PULSE 84; TEMP 97.9; O2SAT 97
== END 2021-06-02 16:16 | DRG 64 ==
LOC: 3ANU 17:39 → EMEROOARM 17:39 → 2ANU 17:39 → SUATTDRO 04-25 03:36 → 3ANU 04-25 06:46 → SUATTDRO 04-27 13:31
PROVIDERS: ADMIT Internal Medicine; ATTEND Family Medicine